=== PATIENT | male | born 1940 | race Caucasian/White ===

== ENCOUNTER → 2018-07-15 14:00 | Outpatient (CLI) | payer OTHER, SELFPAY | PROVIDERS: Family Provider Family Medicine; PCP Family Medicine | DX: Z23 Encounter for immunization (principal) | CPT/HCPCS: 90471; 90662 ==

== ENCOUNTER → 2018-10-18 07:51 | Outpatient (CLI) | payer OTHER, SELFPAY ==
[2018-10-18 09:17] LABS: Add Manual Diff / Slide Review NO; Basophils Percent Auto 0.5 % (0-2); Eosinophils Percent Auto 2.1 % (2-4); Hematocrit 42.5 % (41-53); Hemoglobin 14.4 g/dL (13.5-17.5); Lymphocytes Percent Auto 32.7 % (25-40); Mean Corpuscular HGB Conc 33.9 % (30-36); Mean Corpuscular Hemoglobin 33.2 PG (26-34); Mean Corpuscular Volume 98.2 fL (80-100); Neutrophils Absolute Auto 3200 /uL (1500-7000); Neutrophils Percent Auto 53.7 % (50-75); Platelet Count 176 X10^3/uL (150-400); Red Blood Cell Count 4.33 X10^6/uL (4.5-5.9); Red Cell Distribution Width 13.3 % (11.6-14.8); White Blood Cell Count 5.9 X10^3/uL (4.5-11.0)
[2018-10-18 09:46] LABS: Alanine Aminotransferase 27 IU/L (21-72); Albumin Globulin Ratio 1.5 (1.0-2.8); Alkaline Phosphatase 39 U/L (38-126); Aspartate Aminotransferase 26 IU/L (17-59); Bilirubin Total 0.4 mg/dL (0.2-1.3); Blood Urea Nitrogen 14 mg/dL (9-20); Calcium 9.2 mg/dL (8.4-10.2); Carbon Dioxide 27 mmol/L (22-32); Chloride 103 mmol/L (98-107); Estimated Glomerular Filt Rate > 60.0 mL/min (>60); Globulin 2.7 g/dL (1.7-4.1); Glucose 107 mg/dL (80-110); HEMOLYSIS < 15 (0-50); Potassium 4.7 mmol/L (3.4-5.1); Sodium 139 mmol/L (137-145); Total Protein 6.7 g/dL (6.3-8.2)
[2018-10-18 10:15] LABS: TSH w/ Reflex to FT4 2.17 uIU/mL (0.47-4.68)
[2018-10-18 10:16] LABS: Prostate Specific Antigen Scrn 1.96 ng/mL (0.1-4.0)
== END ==
PROVIDERS: Family Provider Family Medicine; PCP Family Medicine; Visit Provider Family Medicine
DX: I10 Essential (primary) hypertension (principal); E78.5 Hyperlipidemia, unspecified; Z12.5 Encounter for screening for malignant neoplasm of prostate
CPT/HCPCS: 36415; 80053; 84443; 85025; G0103

== ENCOUNTER → 2019-02-07 06:44 | Outpatient (CLI) | payer OTHER, SELFPAY ==
--- NOTE | 2019-02-07 | DI.ECHO.S_ITS ---
[facility]---------+ [facility] +---------+ : : [address] : : : : [id number] : : : : Phone: [phone] Echocardiogram Report + + :Name: ARMANDO CASAS Study Date: 02/07/2019 Height: 67 in : :[facility] Exam Location: [facility] Weight: 172 lb : : Gender: Male BSA: 1.9 m2 : :: 1940 Age: 78 yrs BP: 150/80 mmHg: :Reason For Study: Aortic valve stenosis : :Ordering Physician: Nick : :Milena Performed By: Stephanie Page : :Referring: NICK VILLAFUERTE : + + Interpretation Summary Normal left ventricle size with ejection fraction 60-65%. Mildly dilated left atrium. Mild aortic stenosis. Comparison is made with the echocardiogram of 09/30/2017, there has been no significant change. Procedure: A two-dimensional transthoracic echocardiogram with color flow and Doppler was performed. The study quality was technically good. Comparison is made with the echocardiogram of 09/30/2017. The patient was in normal sinus rhythm during the exam. Left Ventricle: The left ventricle is normal in size. There is normal left ventricular wall thickness. The ejection fraction is estimated to be 60-65%. There are no focal wall motion abnormalities. Diastolic parameters suggest probable normal left ventricular diastolic function and normal filling pressures. Right Ventricle: The right ventricle is normal in size and function. Atria: The left atrium is mildly dilated. Right atrial size is normal. There is no Doppler evidence for an interatrial shunt. Mitral Valve: The mitral valve is normal in structure and function. There is trace mitral regurgitation. Aortic Valve: The aortic valve is trileaflet. The aortic valve is mildly calcified. Leaflet mobility is mild to moderately reduced. There is mild aortic stenosis. The peak aortic velocity is 2.2 m/sec. The peak aortic velocity on the previous exam was 2.5 m/sec. The calculated aortic valve area is 1.6 cm2. The aortic valve mean gradient is 8.8 mmHg. There is trace aortic regurgitation. Tricuspid Valve: The tricuspid valve is normal in structure and function. There is trace tricuspid regurgitation. The right ventricular systolic pressure is estimated to be at least 22 mmHg based on an estimated right atrial pressure of 3 mm Hg. Pulmonic Valve: The pulmonic valve is not well seen, but is grossly normal. There is a trace or physiologic amount of pulmonic regurgitation. Great Vessels: The aortic root is normal size. The ascending aorta is normal in size. The pulmonary artery is not well visualized, but is probably normal size. The IVC is of normal diameter and collapses greater than 50% with a sniff. This suggests a low right atrial pressure of 3 mm Hg. Pericardium/ Pleura There is no pericardial effusion. There is no pleural effusion. MMode/2D Measurements & Calculations LVIDd: 4.6 cm LVOT diam: 2.2 cm LVIDs: 2.9 cm Ao root diam: 3.3 cm FS: 36.4 % asc Aorta Diam: 3.2 cm EPSS: 0.11 cm IVSd: 0.62 cm LVPWd: 0.61 cm LV tipton. diameter/BSA (cm/m^2): 2.4 LV sys. diameter/BSA (cm/m^2): 1.5 LA A2 area: 23.3 cm2 RA long axis: 4.6 cm LA A4 area: 18.5 cm2 RA area: 16.4 cm2 LA length (vol): 5.2 cm RA vol: 49.5 ml LA vol: 70.4 ml RA : 26.1 ml/m2 LA vol index: 37.1 ml/m2 IVC diam: 2.1 cm RVD1 (basal): 3.9 cm TAPSE: 2.2 cm Doppler Measurements & Calculations Ao V2 max: 216.9 cm/sec LVOT Max Ramy: 98.5 cm/sec Ao V2 mean: 140.2 cm/sec LV V1 max P.9 mmHg Ao max P.8 mmHg LV V1 VTI: 22.4 cm Ao mean P.8 mmHg JOSH(I,D): 1.6 cm2 Ao V2 VTI: 51.3 cm JOSH(V,D): 1.7 cm2 sev ratio: 0.44 JOSH indexed to BSA (cm^2/m^2): 0.84 MV E max ramy: 75.6 cm/sec TR max ramy: 218.6 cm/sec MV A max ramy: 81.4 cm/sec TR max P.1 mmHg MV E/A: 0.93 PA V2 max: 80.4 cm/sec Med Peak E' Ramy: 8.5 cm/sec PA V2 mean: 57.4 cm/sec E/E' med: 8.9 PA mean P.4 mmHg Lat Peak E' Ramy: 8.6 cm/sec PA Accel Time: 0.12 sec E/E' lat: 8.8 E/e' average: 8.8 MV dec time: 0.21 sec MV P1/2t: 59.2 msec MV 2t max ramy: 76.3 cm/sec SV(LVOT): 82.2 ml MVA(t): 3.7 cm2 Electronically signed by: Pauline Titus on Reading Physician:02/07/2019 01:33 PM
== END ==
PROVIDERS: Family Provider Family Medicine; PCP Family Medicine; Visit Provider Family Medicine
DX: I35.0 Nonrheumatic aortic (valve) stenosis (principal)
CPT/HCPCS: 93306

== ENCOUNTER → 2019-08-11 18:11 | Outpatient (CLI) | payer OTHER, SELFPAY | PROVIDERS: PCP Family Medicine | DX: Z23 Encounter for immunization (principal) | CPT/HCPCS: 90471; 90662 ==

== ENCOUNTER → 2019-08-18 10:25 | Outpatient (ROUT) | payer OTHER, SELFPAY ==
[2019-08-18 11:02] LABS: Influenza A and B by PCR Rapid Negative (Negative)
== END ==
PROVIDERS: PCP Family Medicine; Visit Provider Nurse Practitioner Family
DX: R05 Cough (principal); R50.9 Fever, unspecified; R52 Pain, unspecified
CPT/HCPCS: 87400; 87502

== ENCOUNTER 2019-11-03 19:34 | Emergency (ER) | payer MEDICARE, OTHER, SELFPAY ==
[2019-11-03 19:39] VITALS: BP 167/72; PULSE 66; RESP 16; TEMP 36.7; O2SAT 100
--- NOTE | 2019-11-03 20:52 | ED.UPPEXIN ---
HPI - Extremity Injury (Upper) General Chief Complaint: Extremity Injury, Upper Stated Complaint: lt hand injury Time Seen by Provider: 11/03/19 20:00 Source: patient Mode of arrival: Ambulatory Limitations: no limitations History of Present Illness HPI narrative: 79-year-old nonsmoking male with noncontributory medical history presents with his in the chief complaint of a superficial skin tear to his left hand. He was putting away Sunny or demands when he suffered this injury due to the sharp edge from the lid of an organizing box. He has no active bleeding, his tetanus is up-to-date and he has full, painless range of motion of his fingers. He denies any numbness or tingling. He has no other injury and is otherwise well and free of complaint. MD complaint: injury to: left Other injuries: none Handedness: left Place: home Severity: mild Relieving factors: none Exacerbating factors: none Context: direct blow and laceration Associated symptoms: denies other symptoms Treatments prior to arrival: bandage Related Data Allergies Allergy/AdvReac Type Severity Reaction Status Date / Time No Known Drug Allergies Allergy Verified 11/03/19 19:39 Review of Systems Constitutional Constitutional: Denies chills, Denies fatigue, Denies fever(s), Denies frequent falls, Denies lethargy and Denies weakness Eyes Eyes: Denies change in vision, Denies eye discharge, Denies irritation and Denies loss of vision ENT Ears, Nose, Mouth, and Throat: Denies change in voice, Denies dizziness, Denies neck pain, Denies sore throat and Denies throat swelling Cardiovascular Cardiovascular: Denies chest pain, Denies irregular heart rhythm, Denies lightheadedness, Denies palpitations, Denies dyspnea, Denies dyspnea on exertion and Denies orthopnea Respiratory Respiratory: Denies cough, Denies dyspnea, Denies dyspnea on exertion and Denies wheezing Gastrointestinal Gastrointestinal: Denies abdominal pain, Denies change in bowel habits, Denies diarrhea, Denies nausea and Denies vomiting Genitourinary Genitourinary: Denies hematuria, Denies flank pain, Denies urinary incontinence and Denies urinary urgency Musculoskeletal Musculoskeletal: Denies back pain, Denies muscle weakness, Denies neck pain, Denies numbness and Denies tingling Integumentary/Breasts Skin/Breast: Denies pruritus, Denies erythema, Denies rash and Reports wounds Neurologic Neurologic: Denies behavioral changes, Denies confusion, Denies dizziness, Denies frequent falls, Denies loss of vision, Denies numbness, Denies tingling and Denies weakness Psychiatric Psychiatric: Denies anxiety, Denies behavioral changes, Denies confusion, Denies depression, Denies homicidal ideation and Denies suicidal ideation Endocrine Endocrine: Denies fatigue, Denies flushing and Denies palpitations Hematologic/Lymphatic Hematologic/Lymphatic: Denies easy bruising Allergic/Immunologic Allergic/Immunologic: Denies urticaria, Denies throat swelling and Denies wheezing Patient History Social History Smoking Status: Former smoker Smoking Status: Former smoker alcohol intake frequency: 0-2 drinks per day Alcohol type: wine Substance Use Type: does not use Exam Narrative Exam Narrative: GEN: AOx3 and in mild distress EYES: Pupils are equal, round, and reactive to light and accommodation. Extraoccular muscles are intact bilaterally. There is no subconjunctival hemorrhage or exudate. CHEST: Lungs are clear to auscultation bilaterally and free of wheezes, rales, or rhonchi. Heart rate is regular rhythm, there are no murmurs, clicks, rubs, or gallops. There is no chest wall tenderness. ABD: Abdomen is soft and nontender. There is no guarding or rebound. Bowel sounds are normal in all 4 quadrants. There is no mass or organomegaly. EXT: 2 cm superficial abrasion on dorsum of left hand with no active bleeding. Skin is too thin to support suturing. Neurovascularly intact Full painless ROM of all extremities with no loss of sensation or strength. SKIN: Warm, pink, and dry. No erythema or rash Initial Vital Signs Initial Vital Signs: Vital Signs Temperature 98.1 F 11/03/19 19:39 Pulse Rate 66 11/03/19 19:39 Respiratory Rate 16 11/03/19 19:39 Blood Pressure 167/72 H 11/03/19 19:39 Pulse Oximetry 100 11/03/19 19:39 Course Vital Signs Vital signs: Vital Signs - 8 hr 11/03/19 19:39 11/03/19 21:14 Temperature 98.1 F Pulse Rate 66 72 Respiratory Rate 16 Blood Pressure 167/72 H 152/74 H Pulse Oximetry 100 97 MDM - Extremity Injury (Upper) MDM Narrative Medical decision making narrative: Patient suffer superficial skin tear. His tetanus is up-to-date. No active bleeding, low risk of infection. Too superficial to support laceration repair with sutures, therefore steristrips used. Return precautions given, questions answered to his apparent satisfaction. Discharge Plan Departure Patient Disposition: Home Clinical Impression: Skin tear of left upper extremity Discharge Date/Time: 11/03/19 21:16 Instructions: DI for Avulsion Laceration (Not Requiring Sutures) Activity Restrictions/Additional Instructions: *You have been diagnosed with [superficial skin tear left hand, no sutures required] *What to do: *Continue to take medications as directed *Follow up with your primary care provider in 2-3 days, call for an appointment. Let them know you were seen in the Emergency Department and that we ask that you be seen in follow up *Return to ER if you should have any new, worsening or concerning symptoms Referrals: Garrison Abbott MD [Primary Care Provider] -
[2019-11-03 21:14] VITALS: BP 152/74; PULSE 72; O2SAT 97
== END 2019-11-03 21:16 | disposition home or self-care (01) ==
PROVIDERS: Emergency Provider Emergency Medicine; Family Provider Family Medicine; PCP Family Medicine
DX: S61.412A Laceration without foreign body of left hand, initial encounter (principal); W26.9XXA Contact with unspecified sharp object(s), initial encounter
CPT/HCPCS: 99281

== ENCOUNTER → 2020-11-23 10:20 | Outpatient (CLI) | payer MEDICARE, OTHER, SELFPAY ==
[2020-11-23] MEDS: COVID-19 VACC #1, MRNA(MOD) 100 MCG/0.5 ML VIAL IM (10:27)
== END ==
PROVIDERS: Family Provider Family Medicine; PCP Family Medicine; Visit Provider Internal Medicine
DX: Z23 Encounter for immunization (principal)
CPT/HCPCS: 0011A; 91301

== ENCOUNTER → 2020-12-21 10:28 | Outpatient (CLI) | payer MEDICARE, OTHER, SELFPAY ==
[2020-12-21] MEDS: COVID-19 VACC #2, MRNA(MOD) 100 MCG/0.5 ML VIAL IM (10:33)
== END ==
PROVIDERS: Family Provider Family Medicine; PCP Family Medicine; Visit Provider Internal Medicine
DX: Z23 Encounter for immunization (principal)
CPT/HCPCS: 0012A; 91301

== ENCOUNTER → 2021-02-27 08:56 | Outpatient (CLI) | payer MEDICARE, OTHER, SELFPAY ==
--- NOTE | 2021-02-27 | DI.CT.S_ITS ---
PROCEDURE: CT CHEST ABD PEL W CON INDICATIONS: Elevated prostate specific antigen [PSA] TECHNIQUE: After the administration of oral and intravenous contrast, 5 mm thick sections acquired from the lung apices to the symphysis. 5 mm coronal and sagittal reformats were performed, with additional 7 mm coronal MIP reformats through the lungs. For radiation dose reduction, the following was used: automated exposure control, adjustment of mA and/or kV according to patient size. COMPARISON: None. FINDINGS: Image quality: Excellent. CHEST: Lungs and pleura: The lungs have centrilobular emphysematous changes. No acute air space opacities. No pleural effusions or pneumothorax. Central and peripheral airways are patent and normal in caliber. Mediastinum: Heart size is normal. The coronary arteries have atherosclerotic calcifications. No pericardial effusion. No mediastinal adenopathy by size criteria. Thoracic aorta and central pulmonary arteries are normal in size. Esophagus is normal in caliber. No hiatal hernia. Bones and chest wall: No suspicious bony lesions. No vertebral body compression fractures. No axillary or supraclavicular adenopathy by size criteria. Thyroid gland is normal . ABDOMEN: Solid organs: Liver: The liver has no mass or intrahepatic biliary ductal dilatation. The portal vein and hepatic veins are patent. Biliary: The gallbladder has no gallstones, pericholecystic fluid, gallbladder wall thickening, or surrounding inflammatory change. Pancreas: The pancreas has no mass or ductal dilatation. There is no surrounding inflammation. Spleen: Normal size. There are no masses. Adrenals: No hypertrophy or nodules. Kidneys: No obstructive calculus or hydronephrosis. No solid mass. The left kidney has a 5 millimeter simple cyst extending from the inferior pole. Bowel: The distal esophagus and stomach are normal. The small bowel has a normal caliber and appearance. The terminal ileum is normal. The large bowel has a normal caliber and appearance. The appendix is normal. No free fluid or air. Nodes and vessels: An aortic Lilly all lymph node at the level of the kidneys measures 1.8 x 1.6 centimeters in axial dimension by 4.2 centimeters craniocaudal. Additional subcentimeter retroperitoneal lymph nodes are seen along the right retroperitoneum along the IVC. Abdominal wall: No abdominal wall mass or hernia. PELVIS: Genitourinary: The bladder has no wall thickening or mass. No bladder calcifications. The prostate measures 3.7 x 4.5 x 4.0 cm. Miscellaneous: No inguinal hernias or adenopathy. Bones and abdominal wall: Patchy sclerotic areas in the visualized spine and pelvis. No vertebral body compression fractures. IMPRESSION: 1. There are patchy sclerotic areas throughout the visualized spine which are suspicious for metastatic disease. Please correlate with bone scan which is being performed today. Sclerotic lesions in the pelvis are also seen likely osseous metastatic disease. 2. Retroperitoneal adenopathy with a conglomerate measuring 1.8 x 1.6 by 4.2 posterior to the IVC at the level of the kidneys. Dictated by: Benito Garcia M.D. on 02/27/2021 at 10:15 Approved by: Benito Garcia M.D. on 02/27/2021 at 10:29
--- NOTE | 2021-02-27 | DI.NM.S_ITS ---
PROCEDURE: NM BONE SCAN WHOLE BODY RADIOPHARMACEUTICAL: 22.6 mCi Tc-99m MDP IV. INDICATIONS: Elevated prostate specific antigen [PSA] TECHNIQUE: Delayed whole-body scintigrams were obtained approximately 3-4 hours after intravenous injection of radiotracer. Anterior and posterior views were acquired from vertex to feet. . COMPARISON: [facility], CT, CT CHEST ABD PEL W CON, 02/27/2021, 9:45. FINDINGS: There are innumerable foci of abnormal uptake involving the cervical, thoracic and lumbar spine, sacrum, sternum, scapulae bilaterally, bony pelvis bilaterally, proximal humeri and proximal femurs bilaterally, consistent with osseous metastases. IMPRESSION: Extensive osseous metastases. Dictated by: Kellie Clayton M.D. on 02/27/2021 at 14:40 Approved by: Kellie Clayton M.D. on 02/27/2021 at 14:42
== END ==
PROVIDERS: Family Provider Family Medicine; PCP Family Medicine; Referring Provider Family Medicine; Visit Provider Family Medicine
DX: R97.20 Elevated prostate specific antigen [PSA] (principal); R59.0 Localized enlarged lymph nodes; R93.5 Abnormal findings on diagnostic imaging of other abdominal regions, including retroperitoneum; C79.51 Secondary malignant neoplasm of bone
CPT/HCPCS: 71260; 74177; 78306; A9503

== ENCOUNTER → 2021-12-23 08:10 | Outpatient (CLI) | payer MEDICARE, OTHER, SELFPAY ==
[2021-12-23 09:11] LABS: BUN Creatinine Ratio 21.6 (6-22); Blood Urea Nitrogen 19 mg/dL (9-20); Calcium 9.5 mg/dL (8.4-10.2); Carbon Dioxide 34 mmol/L (22-32); Chloride 103 mmol/L (98-107); Estimated Glomerular Filt Rate > 60.0 mL/min (>60); Glucose 107 mg/dL (80-110); HEMOLYSIS < 15 (0-50); Sodium 138 mmol/L (137-145)
[2021-12-23 09:19] LABS: Potassium 5.4 mmol/L (3.4-5.1)
== END ==
PROVIDERS: Family Provider Family Medicine; PCP Family Medicine; Referring Provider Urology; Visit Provider Urology
DX: C61 Malignant neoplasm of prostate (principal)
CPT/HCPCS: 36415; 80048

== ENCOUNTER → 2021-12-24 07:35 | Outpatient (CLI) | payer MEDICARE, OTHER, SELFPAY ==
--- NOTE | 2021-12-24 | DI.CT.S_ITS ---
PROCEDURE: CT ABDOMEN PELVIS W CON INDICATIONS: Malignant neoplasm of prostate TECHNIQUE: After the administration of oral and intravenous contrast, axial sections were acquired from the lung bases to the pubic symphysis. Coronal and sagittal reformats were performed. For radiation dose reduction, the following was used: automated exposure control, adjustment of mA and/or kV according to patient size. COMPARISON:[facility], NM, NM BONE SCAN WHOLE BODY, 02/27/2021, 12:05. [facility], CT, CT CHEST ABD PEL W CON, 02/27/2021, 9:45. FINDINGS: Image quality: Excellent. Lung bases: Unremarkable. Heart: No significant findings. ABDOMEN: Liver: Hepatic steatosis is present. Gallbladder: Unremarkable. Biliary ducts: Unremarkable. Pancreas: Unremarkable. Spleen: Unremarkable. Adrenal Glands: Unremarkable. Kidneys and Ureters: Simple exophytic left renal cyst is unchanged. Stomach and Bowel: Stomach, small bowel loops, and colon are unremarkable. Colonic diverticula are present without inflammatory change. Peritoneum: No abnormal intraperitoneal fluid. No free air. Lipoma within the left lateral abdominal wall musculature is unchanged. Ventral Wall: No hernia. Abdominal Nodes: Previously identified aortocaval lymph node on series 2, image 38 has decreased in size currently measuring 0.6 by 1.0 cm compared to 1.7 x 1.8 cm. Vessels: Aorta and inferior vena cava are normal in size. PELVIS: Pelvic Organs: Unremarkable. Bladder: Unremarkable. Pelvic Nodes: No enlarged lymph nodes. Previously identified predominantly subcentimeter lymph nodes extending along the right iliac change have markedly decreased in size with the largest measuring 3 mm in short axis compared to 12 mm on prior exam. Miscellaneous: Fat containing inguinal hernias are present. Bones: There is a diffuse appearance of sclerotic lesions within the axial and appendicular skeleton progressive compared to prior exams of 02/27/2021. IMPRESSION: Extensive skeletal metastatic disease, progressive since 2020. Decreased appearance of aortocaval adenopathy as well as right iliac adenopathy. Dictated by: Huong Pedersen M.D. on 12/24/2021 at 15:03 Approved by: Huong Pedersen M.D. on 12/24/2021 at 15:11
--- NOTE | 2021-12-24 | DI.NM.S_ITS ---
PROCEDURE: AL BONE SCAN WHOLE BODY RADIOPHARMACEUTICAL: 19.7 mCi Tc-99m MDP IV. INDICATIONS: Malignant neoplasm of prostate TECHNIQUE: Delayed whole-body scintigrams were obtained approximately 3-4 hours after intravenous injection of radiotracer. Anterior and posterior views were acquired from vertex to feet. Additional left and right oblique views of the pelvis were obtained. COMPARISON: [facility], CT, CT ABDOMEN PELVIS W CON, 12/24/2021, 9:13. [facility], NM, NM BONE SCAN WHOLE BODY, 02/27/2021, 12:05. FINDINGS: Physiologic uptake is noted within the kidneys and bladder. There are scattered areas of uptake identified within the ribs bilaterally. In addition, multilevel uptake is also noted within the spine. Uptake is also noted within the sacrum as well as iliac bones, with areas of uptake into the proximal femurs. There is a punctate focus of increased uptake overlying the left calvarium as well as a questionable focus on the right. While overall appearance on CT exam of 12/24/2021 appears more extensive in terms of osseous metastatic disease compared to prior CT scan of 02/27/2021, bone scans appear relatively similar. IMPRESSION: Diffuse osseous metastatic disease appearing overall relatively stable compared to prior bone scan exam. It is noted that CT exam of today does appear worse compared to prior CT exam. Dictated by: Huong Pedersen M.D. on 12/24/2021 at 17:11 Approved by: Huong Pedersen M.D. on 12/24/2021 at 17:15
== END ==
PROVIDERS: Family Provider Family Medicine; PCP Family Medicine; Referring Provider Urology; Visit Provider Urology
DX: C61 Malignant neoplasm of prostate (principal); C79.51 Secondary malignant neoplasm of bone; K76.0 Fatty (change of) liver, not elsewhere classified; K40.90 Unilateral inguinal hernia, without obstruction or gangrene, not specified as recurrent
CPT/HCPCS: 74177; 78306; A9503; Q9967

== ENCOUNTER → 2022-03-05 08:55 | Outpatient (CLI) | payer MEDICARE, OTHER, SELFPAY ==
--- NOTE | 2022-03-05 10:07 | DI.CT.S_ITS ---
PROCEDURE: CT ABDOMEN PELVIS W CON INDICATIONS: Malignant neoplasm of prostate TECHNIQUE: After the administration of oral and intravenous contrast, axial sections were acquired from the lung bases to the pubic symphysis. Coronal and sagittal reformats were performed. For radiation dose reduction, the following was used: automated exposure control, adjustment of mA and/or kV according to patient size. COMPARISON:[facility], CT, CT CHEST ABD PEL W CON, 02/27/2021, 9:45. [facility], CT, CT ABDOMEN PELVIS W CON, 12/24/2021, 9:13. FINDINGS: Image quality: Excellent. Lung bases: Unremarkable. Heart: No significant findings. ABDOMEN: Liver: Unremarkable. Gallbladder: Unremarkable. Biliary ducts: Unremarkable. Pancreas: Unremarkable. Spleen: Unremarkable. Adrenal Glands: Unremarkable. Kidneys and Ureters: Unremarkable. Throughout the spine and pelvis. Sclerotic bony lesions are also visualized within the superior aspect of the bilateral femurs. Overall, these findings are similar in extent to the study dated December 24, 2021. A low-density cyst is present within the midpole of the left kidney. Stomach and Bowel: Stomach, small bowel loops, and colon are unremarkable. There are scattered sigmoid diverticula. No evidence for diverticulitis. The appendix is thin walled and gas filled. Peritoneum: No abnormal intraperitoneal fluid. No free air. Ventral Wall: No hernia. Abdominal Nodes: No retroperitoneal or mesenteric adenopathy by size criteria. Vessels: Aorta and inferior vena cava are normal in size. There are scattered atheromatous calcifications throughout the aorta and iliac arteries bilaterally. PELVIS: Pelvic Organs: Unremarkable. Bladder: Unremarkable. Pelvic Nodes: No enlarged lymph nodes. Miscellaneous: There is a small right fat containing inguinal hernia. Bones: There are diffuse sclerotic bony lesions IMPRESSION: 1. Extensive sclerotic bony metastases unchanged from prior studies. 2. Near complete resolution of the previously visualized retroperitoneal adenopathy. No findings to suggest new soft tissue metastasis. Dictated by: Lluvia Rutherford M.D. on 03/05/2022 at 11:10 Approved by: Lluvia Rutherford M.D. on 03/05/2022 at 11:22
[2022-03-05 11:33] LABS: COVID-19 CEPHEID PCR (VTM/NP) Negative (Negative)
== END ==
PROVIDERS: Family Provider Family Medicine; PCP Family Medicine; Referring Provider Urology; Visit Provider Urology
DX: C61 Malignant neoplasm of prostate (principal); C79.51 Secondary malignant neoplasm of bone; Z20.822 Contact with and (suspected) exposure to COVID-19
CPT/HCPCS: 74177; U0003; U0005

== ENCOUNTER → 2022-07-29 09:00 | Outpatient (CLI) | payer MEDICARE, OTHER, SELFPAY | PROVIDERS: Family Provider Family Medicine; PCP Family Medicine; Referring Provider Internal Medicine; Visit Provider Internal Medicine | DX: Z23 Encounter for immunization (principal) | CPT/HCPCS: 90471; 90662 ==

== ENCOUNTER → 2022-09-22 12:39 | Outpatient (ROUT) | payer MEDICARE, OTHER, SELFPAY ==
[2022-09-22 13:38] LABS: Influenza A - CEPHEID Flu A POSITIVE (NEGATIVE); Influenza B - CEPHEID Flu B NEGATIVE (NEGATIVE); Respiratory Syncytial Virus Negative (Negative)
[2022-09-22 14:32] LABS: COVID-19 CEPHEID 4-PLEX PCR Negative (Negative)
== END ==
PROVIDERS: Family Provider Family Medicine; PCP Family Medicine; Visit Provider Family Medicine
DX: R05.9 Cough, unspecified (principal); R50.9 Fever, unspecified
CPT/HCPCS: 0241U

== ENCOUNTER 2022-09-27 08:17 | Emergency (ER) | payer MEDICARE, OTHER, SELFPAY ==
[2022-09-27] VITALS (15 sets, daily range): BP systolic 161–190; BP diastolic 70–87; PULSE 64–88; RESP 16–18; TEMP 37; O2SAT 94–99; BMI 27.0
--- NOTE | 2022-09-27 09:05 | DI.CT.S_ITS ---
PROCEDURE: CT CHEST ABD PEL W CON INDICATIONS: rt side pain 1 week TECHNIQUE: After the administration of intravenous contrast, axial sections acquired from the supraclavicular neck to the pubic symphysis. Coronal and sagittal reformats were performed. For radiation dose reduction, the following was used: automated exposure control, adjustment of mA and/or kV according to patient size. COMPARISON: [facility], CT, CT ABDOMEN PELVIS W CON, 12/24/2021, 9:13. [facility], CT, CT ABDOMEN PELVIS W CON, 03/05/2022, 10:17. [facility], MD, MD BONE SCAN WHOLE BODY, 12/24/2021, 10:26. [place], [place], [place] BONE SCAN WHOLE BODY, 02/27/2021, 12:05. [facility], CT, CT CHEST ABD PEL W CON, 02/27/2021, 9:45. FINDINGS: Image quality: Excellent. CHEST: Lower Neck: No enlarged lymph nodes. Thyroid: Within normal limits. Axillae: No enlarged lymph nodes. Chest Wall: Unremarkable. Lungs and Airways: No consolidation or suspicious nodules. Centrilobular emphysematous changes are seen. These are more prominent at the lung apices than at the lung bases. Pleura: No pneumothorax or pleural effusions. Heart: Heart size is normal. No pericardial effusion. Mild coronary artery calcification is seen. Thoracic Vessels: The aorta and pulmonary arteries demonstrate normal size. Mediastinum and Liliana: No enlarged lymph nodes. Esophagus: No wall thickening. There is a mild hiatal hernia. ABDOMEN: Liver: Unremarkable. Gallbladder: Unremarkable. Biliary ducts: Unremarkable. Pancreas: Unremarkable. Spleen: Unremarkable. Adrenal Glands: Unremarkable. Kidneys and Ureters: A simple left renal cyst is seen anteriorly, 4.5 cm. The kidneys demonstrate normal size and enhance symmetrically. There is no hydronephrosis. Stomach and Bowel: Stomach, small bowel loops, and colon are unremarkable. Colonic diverticulosis is seen, without findings of active diverticulitis. A normal appendix is seen, which projects inferiorly. Peritoneum: No abnormal intraperitoneal fluid. No free air. Ventral Wall: No hernia. Abdominal Nodes: No retroperitoneal or mesenteric adenopathy by size criteria. Vessels: Aorta and inferior vena cava are normal in size. Atherosclerotic calcification is noted. PELVIS: Pelvic Organs: Unremarkable. Bladder: Unremarkable. Pelvic Nodes: No enlarged lymph nodes. Miscellaneous: No inguinal hernias are seen. Bones: Innumerable foci of sclerotic metastatic disease can be seen within nearly overly visualized bone, which is similar to the prior CT, 03/05/2022. IMPRESSION: Advanced sclerotic metastatic disease is seen, which is similar to the prior CT. No keisha pathologic fracture is seen. Normal appendix. No significant gallbladder abnormality is seen. The previously seen right retroperitoneal lymphadenopathy has resolved. Additional findings: Centrilobular emphysematous changes Mild coronary artery calcification Mild hiatal hernia Simple left renal cyst Diverticulosis, without active diverticulitis Dictated by: William Leblanc M.D. on 09/27/2022 at 9:41 Approved by: William Leblanc M.D. on 09/27/2022 at 9:48
--- NOTE | 2022-09-27 09:06 | ED_ITS ---
HPI - General Adult General Chief complaint: Upper Respiratory Symptoms Stated complaint: saw DR on t-6 has Flu not getting better Time Seen by Provider: 09/27/22 08:55 Mode of arrival: Family Vehicle History of Present Illness HPI narrative: Patient here with spouse. Complains of right lower quadrant abdominal pain for the past 3 days. Patient seen by primary care and tested positive for flu a. Has been given [id number] cough medication without relief. Pain worsened in the past 3 days. Codeine suspension cough medication was prescribed yesterday. Hurts with movement and coughing. No shortness of breath. No vomiting. No diarrhea. Related Data Previous Rx's Medication Instructions Recorded hydrocodone 5 mg-acetaminophen 325 1 tab PO Q6H PRN pain #20 tabs 09/27/22 mg tablet Allergies Allergy/AdvReac Type Severity Reaction Status Date / Time No Known Drug Allergies Allergy Verified 09/27/22 08:44 Review of Systems Review of Systems Narrative: GENERAL: negative chills, fatigue, malaise, fever, sweats. HEENT: negative sinus pain, ear pain, sore throat RESPIRATORY: negative dyspnea, positive cough CARDIOVASCULAR: negative chest pain, palpitations GASTROINTESTINAL: negative nausea, vomiting, negative diarrhea positive abdominal pain : negative dysuria, frequency, hematuria MUSCULOSKELETAL: negative muscle or bony pain SKIN: negative rash, skin lesions NEUROLOGIC: negative weakness, numbness ROS Unobtainable: All systems reviewed & are unremarkable except as noted in HPI and below Patient History Social History Smoking Status: Former smoker Smoking Status: Former smoker alcohol intake frequency: 0-2 drinks per day Alcohol type: wine Substance Use Type: does not use Exam Narrative Exam Narrative: GENERAL: in no distress, not toxic not dyspneic HEAD: Normocephalic. EYES: Pupils equal round No scleral icterus. ENT: Mucous membranes moist. NECK: Trachea midline. CARDIOVASCULAR: Regular rate and rhythm without murmurs RESPIRATORY: Clear to auscultation. Breath sounds equal bilaterally. No wheezes, rales, or rhonchi. GASTROINTESTINAL: Abdomen soft, reproducible right lower quadrant tenderness. There is no rib tenderness on the right side. Bowel sounds are present. No peritoneal signs. No CVA tenderness EXTREMITIES: No gross deformities. BACK: No flank tenderness. NEURO: AOx4. SKIN: Warm and dry PSYCH: Not anxious, is cooperative Initial Vital Signs Initial Vital Signs: Vital Signs Temperature 98.6 F 09/27/22 08:40 Pulse Rate 78 09/27/22 08:40 Respiratory Rate 18 09/27/22 08:40 Blood Pressure 175/81 H 09/27/22 08:40 Pulse Oximetry 98 09/27/22 08:40 Oxygen Delivery Method 09/27/22 08:40 Course Course Course Narrative: No new issues during course of stay Orders Ordered: Discontinued Medications Sodium Chloride (Normal Saline 0.9%) 1,000 mls @ 1,000 mls/hr IV BOLUS ONE Stop: 09/27/22 10:02 Last Infusion: 09/27/22 10:29 Dose: 0 mls/hr Documented By: Admin: 09/27/22 09:30 Dose: 1,000 mls/hr Documented By: SLOANE Morphine Sulfate (Morphine 4 Mg/Ml Inj) 4 mg IV NOW ONE Stop: 09/27/22 09:04 Last Admin: 09/27/22 09:30 Dose: 4 mg Documented By: SLOANE Ondansetron HCl (Ondansetron 4 Mg/2 Ml Inj) 4 mg IV NOW ONE Stop: 09/27/22 09:04 Last Admin: 09/27/22 09:30 Dose: 4 mg Documented By: SLOANE Reevaluation(s) Reevaluation #1: Patient pain-free at time of discharge. Agrees with medication pain medication changes. Return precautions reviewed with patient and . Time: 13:34 Vital Signs Vital signs: Vital Signs - 8 hr 09/27/22 08:40 09/27/22 09:35 09/27/22 09:37 Temperature 98.6 F Pulse Rate 78 69 70 Respiratory Rate 18 Blood Pressure 175/81 H Pulse Oximetry 98 97 95 Oxygen Delivery Method Room Air 09/27/22 09:37 09/27/22 09:40 09/27/22 09:40 Temperature Pulse Rate 64 Respiratory Rate Blood Pressure 185/80 H 165/78 H Pulse Oximetry 95 Oxygen Delivery Method 09/27/22 10:00 09/27/22 10:00 09/27/22 10:36 Temperature Pulse Rate 66 88 Respiratory Rate Blood Pressure 182/80 H Pulse Oximetry 94 94 Oxygen Delivery Method 09/27/22 10:38 09/27/22 10:38 09/27/22 10:40 Temperature Pulse Rate 87 81 Respiratory Rate Blood Pressure 190/87 H Pulse Oximetry 98 99 Oxygen Delivery Method 09/27/22 10:40 09/27/22 11:00 09/27/22 11:01 Temperature Pulse Rate 75 Respiratory Rate Blood Pressure 173/74 H 179/81 H Pulse Oximetry 98 Oxygen Delivery Method 09/27/22 11:01 09/27/22 11:20 09/27/22 11:20 Temperature Pulse Rate 75 76 Respiratory Rate Blood Pressure 163/70 H Pulse Oximetry 97 95 Oxygen Delivery Method 09/27/22 11:30 09/27/22 11:41 09/27/22 11:41 Temperature Pulse Rate 74 71 Respiratory Rate Blood Pressure 161/70 H Pulse Oximetry 95 95 Oxygen Delivery Method 09/27/22 12:00 09/27/22 12:00 Temperature Pulse Rate 72 Respiratory Rate Blood Pressure 166/71 H Pulse Oximetry 97 Oxygen Delivery Method Medical Decision Making Differential Diagnosis Differential Diagnosis: Abdominal muscle strain/appendicitis/colitis Lab Data Result diagrams: 09/27/22 09:22 09/27/22 09:22 Labs: Lab Results 09/27/22 09/27/22 09/27/22 Range/Units 09:22 09:22 10:37 WBC 5.8 (4.5-11.0) X10^3/uL RBC 3.99 L (4.5-5.9) X10^6/uL Hgb 13.3 L (13.5-17.5) g/dL Hct 38.6 L (41-53) % MCV 96.7 (80-100) fL MCH 33.4 (26-34) PG MCHC 34.5 (30-36) % RDW 12.7 (11.6-14.8) % Plt Count 167 (150-400) X10^3/uL Neut % (Auto) 66.0 (50-75) % Lymph % (Auto) 20.2 L (25-40) % [place] % (Auto) 13.2 (3-14) % Eos % (Auto) 0.4 L (2-4) % Baso % (Auto) 0.2 (0-2) % Neut # (Auto) 3800 (7561-4009) /uL Lymph # (Auto) 1200 (8762-2142) /uL [place] # (Auto) 800 (0-900) /uL Eos # (Auto) 0 (0-450) /uL Baso # (Auto) 0 (0-100) /uL Sodium 139 (137-145) mmol/L Potassium 4.0 (3.4-5.1) mmol/L Chloride 101 (98-107) mmol/L Carbon Dioxide 29 (22-32) mmol/L BUN 20 (9-20) mg/dL Creatinine 0.70 (0.66-1.25) mg/dL Estimated GFR > 60 (>60) mL/min BUN/Creatinine Ratio 28.6 H (6-22) Glucose 109 (80-110) mg/dL Calcium 10.4 H (8.4-10.2) mg/dL Total Bilirubin 0.6 (0.2-1.3) mg/dL AST 29 (17-59) IU/L ALT 26 (<50) IU/L Alkaline Phosphatase 37 L (38-126) U/L Total Protein 7.2 (6.3-8.2) g/dL Albumin 4.0 (3.5-5.0) g/dL Globulin 3.2 (1.7-4.1) g/dL Albumin/Globulin Ratio 1.3 (1.0-2.8) Urine Color Yellow Urine Appearance Clear Urine pH 6.5 (4.5-8.0) Ur Specific [place] <=1.005 (1.000-1.035) Urine Protein Negative (Negative) Urine Glucose (UA) Negative (Negative) g/dL Urine Ketones Negative (NEGATIVE) Urine Occult Blood Negative (Negative) Urine Nitrate Negative (Negative) Urine Bilirubin Negative (NEGATIVE) Urine Urobilinogen 0.2 (0.2) E.U./dL Ur Leukocyte Esterase Negative (NEGATIVE) Urine RBC 0-1/hpf (0-5/HPF) Urine WBC 0-1/hpf (0-5/HPF) Ur Squamous Epith Cells 0-1 /hpf (0-5/HPF) Urine Bacteria None seen (None) Ur Culture Indicated? Cult not indicated Imaging Data CT scan - abdomen/pelvis: Radiologist's Impression: CT chest abdomen pelvis resultsAdvanced sclerotic metastatic disease is seen which is similar to the prior CT. No keisha pathologic fracture seen. Normal appendix. MDM Narrative Medical decision making narrative: Appropriate for discharge homePatient not toxic at discharge.Return precautions reviewed with patient.Exam and laboratory studies and imaging otherwise reassuring. Patient understands not to take codeine since we are prescribing pain medicationPatient does have a driver lifter of sanitation truck. Repetitive coughing likely strain abdominal muscle wall Discharge Plan Departure Patient Disposition: Home Clinical Impression: Muscle strain Instructions: Abdominal Muscle Strain Activity Restrictions/Additional Instructions: See family doctor next week for re-evaluation Please do not take your codeine cough medication.Hydrocodone prescription has been printed for you to help for your abdominal pain.Return if worse or if any questions or concerns No driving or operating machinery today or when taking prescribed pain medication. Prescriptions: New hydrocodone-acetaminophen 5-325 mg tablet 1 tab PO Q6H PRN (Reason: pain) Qty: 20 0RF Referrals: Garrison Abbott MD [Primary Care Provider] - Visit Report Forms: Patient Portal/API
[2022-09-27] MEDS: MORPHINE 4 MG/ML INJ IV (09:30)
[2022-09-27] MEDS: ONDANSETRON 4 MG/2 ML INJ IV (09:30)
[2022-09-27] MEDS: SODIUM CHLORIDE 0.9% 1,000 ML 1000 ML IV (09:30)
[2022-09-27 09:31] LABS: Add Manual Diff / Slide Review NO; Basophils Absolute Auto 0 /uL (0-100); Basophils Percent Auto 0.2 % (0-2); Eosinophils Absolute Auto 0 /uL (0-450); Eosinophils Percent Auto 0.4 % (2-4); Hematocrit 38.6 % (41-53); Hemoglobin 13.3 g/dL (13.5-17.5); Lymphocytes Absolute Auto 1200 /uL (1100-4500); Lymphocytes Percent Auto 20.2 % (25-40); Mean Corpuscular HGB Conc 34.5 % (30-36); Mean Corpuscular Hemoglobin 33.4 PG (26-34); Mean Corpuscular Volume 96.7 fL (80-100); Monocytes Absolute Auto 800 /uL (0-900); Monocytes Percent Auto 13.2 % (3-14); Neutrophils Absolute Auto 3800 /uL (1500-7000); Platelet Count 167 X10^3/uL (150-400); Red Blood Cell Count 3.99 X10^6/uL (4.5-5.9); Red Cell Distribution Width 12.7 % (11.6-14.8); White Blood Cell Count 5.8 X10^3/uL (4.5-11.0)
[2022-09-27 09:58] LABS: Alanine Aminotransferase 26 IU/L (<50); Albumin Globulin Ratio 1.3 (1.0-2.8); Alkaline Phosphatase 37 U/L (38-126); Aspartate Aminotransferase 29 IU/L (17-59); BUN Creatinine Ratio 28.6 (6-22); Bilirubin Total 0.6 mg/dL (0.2-1.3); Blood Urea Nitrogen 20 mg/dL (9-20); Calcium 10.4 mg/dL (8.4-10.2); Carbon Dioxide 29 mmol/L (22-32); Chloride 101 mmol/L (98-107); Estimated Glomerular Filt Rate > 60 mL/min (>60); Globulin 3.2 g/dL (1.7-4.1); Glucose 109 mg/dL (80-110); HEMOLYSIS < 15 (0-50); Sodium 139 mmol/L (137-145); Total Protein 7.2 g/dL (6.3-8.2)
[2022-09-27 11:02] LABS: Appearance Urine UA CLEAR; Bilirubin Urine UA NEGATIVE (NEGATIVE); Color Urine UA YELLOW; Glucose Urine UA NEGATIVE (Negative); Ketones Urine UA NEGATIVE (NEGATIVE); Leukocyte Esterase Urine UA NEGATIVE (NEGATIVE); Nitrite Urine UA NEGATIVE (Negative); Occult Blood Urine UA NEGATIVE (Negative); Protein Urine UA NEGATIVE (Negative); Specific Gravity Urine UA <=1.005 (1.000-1.035); Urobilinogen Urine UA 0.2 E.U./dL (0.2); pH Urine UA 6.5 (4.5-8.0)
[2022-09-27 11:28] LABS: Bacteria Urine None Seen; Culture Indicated Urine Cult Not Indicated; RBC Urine 0-1/HPF (0-5/HPF); Squamous Epithelial Cell Urine 0-1 /HPF (0-5/HPF); WBC Urine 0-1/HPF (0-5/HPF)
== END 2022-09-27 13:38 | disposition home or self-care (01) ==
PROVIDERS: Emergency Provider Emergency Medicine; Family Provider Family Medicine; PCP Family Medicine
DX: S39.011A Strain of muscle, fascia and tendon of abdomen, initial encounter (principal); R05.9 Cough, unspecified
CPT/HCPCS: 36415; 71260; 74177; 80053; 81001; 85025; 96361; 96374; 96375; 99284; J2270; J2405; Q9967

== ENCOUNTER 2023-07-23 15:17 | Emergency (ER) | payer MEDICARE, OTHER, SELFPAY ==
[2023-07-23] VITALS (17 sets, daily range): BP systolic 88–134; BP diastolic 50–64; PULSE 83–99; RESP 16–27; TEMP 37.3; O2SAT 93–98; BMI 28.1
--- NOTE | 2023-07-23 15:35 | DI.RAD.S_ITS ---
PROCEDURE: XR CHEST 1V INDICATIONS: chest pain TECHNIQUE: One view of the chest was acquired. COMPARISON: [facility], CT, CT CHEST ABD PEL W CON, 09/27/2022, 10:18. FINDINGS: Surgical changes and devices: None. Lungs and pleura: Lungs are clear. No pleural effusions or pneumothorax. Mediastinum: Mediastinal contours appear normal. Heart size is normal. Bones and chest wall: No suspicious bony lesions. Age-appropriate bony degenerative changes are seen. Overlying soft tissues appear unremarkable. IMPRESSION: Portable chest within normal limits for age. Dictated by: William Leblanc M.D. on 07/23/2023 at 16:16 Approved by: William Leblanc M.D. on 07/23/2023 at 16:17
--- NOTE | 2023-07-23 15:45 | PC.NURSE ---
Pt c/o dizziness, malaise, body aches. When asked about chest pain, denies pain, reports mild, intermittent chest pressure, now resolved.
[2023-07-23] MEDS: ACETAMINOPHEN 325 MG TABLET 650 MG PO (16:12)
[2023-07-23] MEDS: SODIUM CHLORIDE 0.9% 500 ML 1000 ML IV (16:12)
--- NOTE | 2023-07-23 16:14 | ED_ITS ---
HPI - Chest Pain <Johana Carreno PA-C - Last Filed: 07/23/23 19:19> General Chief Complaint: Chest Pain Stated Complaint: chills/N/D/weak/covid -/ T-0/ Time Seen by Provider: 07/23/23 15:55 Source: patient Mode of arrival: Wheelchair Limitations: no limitations History of Present Illness HPI narrative: Patient is an 83-year-old male with a history of prostate cancer for which he is currently under treatment and controlled hypertension who presents with chills and body aches since last night. He reports a rare cough, no runny nose or sore throat, no nausea or vomiting, soft stools that are not watery and no abdominal pain. He is no new urinary complaints. He had a negative COVID test at home. He has taken 200 mg of ibuprofen twice today. His PCP is Dr. Abbott. Related Data Previous Rx's Medication Instructions Recorded hydrocodone 5 mg-acetaminophen 325 1 tab PO Q6H PRN pain #20 tabs //22 mg tablet Allergies Allergy/AdvReac Type Severity Reaction Status Date / Time codeine Allergy Verified 07/23/23 15:28 Review of Systems <Johana Carreno PA-C - Last Filed: 07/23/23 19:19> Review of Systems ROS Unobtainable: All systems reviewed & are unremarkable except as noted in HPI and below Patient History <Johana Carreno PA-C - Last Filed: 07/23/23 19:19> Social History Smoking Status: Former smoker Smoking Status: Former smoker alcohol intake frequency: 0-2 drinks per day Alcohol type: wine Substance Use Type: does not use Exam <Johana Carreno PA-C - Last Filed: 07/23/23 19:19> Narrative Exam Narrative: GENERAL: 83 year old patient appears stated age. Well-developed patient, in no distress. Shivering. NEURO: AOx3. HEAD: Atraumatic. Normocephalic. EYES: Pupils equal round and reactive. Extraocular motions intact. No scleral icterus. No injection or drainage. ENT: Nose without bleeding or purulent drainage. Airway patent. NECK: Trachea midline. Non tender. No neck stiffness. CARDIOVASCULAR: Regular rate and rhythm without murmurs, gallops, or rubs. RESPIRATORY: Clear to auscultation. Breath sounds equal bilaterally. No wheezes, rales, or rhonchi. GASTROINTESTINAL: Abdomen soft, non-tender, nondistended. EXTREMITIES: No edema or joint tenderness. SKIN: No rash or erythema of visible areas Initial Vital Signs Initial Vital Signs: Vital Signs Temperature 99.2 F 07/23/23 15:29 Pulse Rate 89 07/23/23 15:29 Respiratory Rate 16 07/23/23 15:29 Blood Pressure 88/50 L 07/23/23 15:29 Pulse Oximetry 97 07/23/23 15:29 Oxygen Delivery Method Room Air 07/23/23 15:29 <Marilyn Boykin DO - Last Filed: 07/24/23 04:30> Initial Vital Signs Initial Vital Signs: Vital Signs Temperature 99.2 F 07/23/23 15:29 Pulse Rate 89 07/23/23 15:29 Respiratory Rate 16 07/23/23 15:29 Blood Pressure 88/50 L 07/23/23 15:29 Pulse Oximetry 97 07/23/23 15:29 Oxygen Delivery Method Room Air 07/23/23 15:29 Course <Johana Carreno PA-C - Last Filed: 07/23/23 19:19> Orders Ordered: Discontinued Medications Acetaminophen (Acetaminophen 325 Mg Tablet) 650 mg PO Q4H PRN PRN Reason: Fever/Mild Pain (1-3) Last Admin: 07/23/23 16:12 Dose: 650 mg Documented By: Sodium Chloride (Normal Saline 0.9%) 500 mls @ 500 mls/hr IV BOLUS ONE Stop: 07/23/23 17:05 Last Infusion: 07/23/23 17:08 Dose: 0 mls/hr Documented By: Admin: 07/23/23 16:12 Dose: 1,000 mls/hr Documented By: Sodium Chloride (Normal Saline 0.9%) 500 mls @ 500 mls/hr IV BOLUS ONE Stop: 07/23/23 19:36 Last Infusion: 07/23/23 20:10 Dose: 0 mls/hr Documented By: Admin: 07/23/23 18:45 Dose: 500 mls/hr Documented By: ST Vital Signs Vital signs: Vital Signs - 8 hr 07/23/23 20:36 07/23/23 20:36 Pulse Rate 99 H Blood Pressure 131/60 Pulse Oximetry 97 <Marilyn Boykin DO - Last Filed: 07/24/23 04:30> Orders Ordered: Discontinued Medications Acetaminophen (Acetaminophen 325 Mg Tablet) 650 mg PO Q4H PRN PRN Reason: Fever/Mild Pain (1-3) Last Admin: 07/23/23 16:12 Dose: 650 mg Documented By: ST Sodium Chloride (Normal Saline 0.9%) 500 mls @ 500 mls/hr IV BOLUS ONE Stop: 07/23/23 17:05 Last Infusion: 07/23/23 17:08 Dose: 0 mls/hr Documented By: Admin: 07/23/23 16:12 Dose: 1,000 mls/hr Documented By: ST Sodium Chloride (Normal Saline 0.9%) 500 mls @ 500 mls/hr IV BOLUS ONE Stop: 07/23/23 19:36 Last Infusion: 07/23/23 20:10 Dose: 0 mls/hr Documented By: Admin: 07/23/23 18:45 Dose: 500 mls/hr Documented By: ST Vital Signs Vital signs: Vital Signs - 8 hr 07/23/23 20:36 07/23/23 20:36 Pulse Rate 99 H Blood Pressure 131/60 Pulse Oximetry 97 MDM - Chest Pain <Johana Carreno PA-C - Last Filed: 07/23/23 19:19> Lab Data 07/23/23 16:03 07/23/23 16:03 Labs: Lab Results 07/23/23 07/23/23 07/23/23 Range/Units 16:00 16:03 16:03 WBC 7.7 (4.5-11.0) X10^3/uL RBC 4.01 L (4.5-5.9) X10^6/uL Hgb 13.5 (13.5-17.5) g/dL Hct 39.6 L (41-53) % MCV 98.8 (80-100) fL MCH 33.7 (26-34) PG MCHC 34.1 (30-36) % RDW 13.2 (11.6-14.8) % Plt Count 150 (150-400) X10^3/uL Neut % (Auto) 79.8 H (50-75) % Lymph % (Auto) 10.4 L (25-40) % [facility] % (Auto) 9.1 (3-14) % Eos % (Auto) 0.4 L (2-4) % Baso % (Auto) 0.3 (0-2) % Neut # (Auto) 6100 (8625-1977) /uL Lymph # (Auto) 800 L (5204-7664) /uL [facility] # (Auto) 700 (0-900) /uL Eos # (Auto) 0 (0-450) /uL Baso # (Auto) 0 (0-100) /uL PT 12.5 (10.1-12.7) SECONDS INR 1.1 (0.9-1.3) APTT 27 (26-36) SECONDS Sodium (137-145) mmol/L Potassium (3.4-5.1) mmol/L Chloride (98-107) mmol/L Carbon Dioxide (22-32) mmol/L BUN (9-20) mg/dL Creatinine (0.66-1.25) mg/dL Estimated GFR (>60) mL/min BUN/Creatinine Ratio (6-22) Glucose (80-110) mg/dL Calcium (8.4-10.2) mg/dL Magnesium (1.6-2.3) mg/dL Total Bilirubin (0.2-1.3) mg/dL AST (17-59) IU/L ALT (<50) IU/L Alkaline Phosphatase (38-126) U/L Total Creatine Kinase (55-170) U/L Troponin I (0.01-0.034) ng/mL Total Protein (6.3-8.2) g/dL Albumin (3.5-5.0) g/dL Globulin (1.7-4.1) g/dL Albumin/Globulin Ratio (1.0-2.8) Lipase (23-300) U/L SARS-CoV-2 (PCR) Positive H (Negative) Influenza A (RT-PCR) Flu a negative (NEGATIVE) Influenza B (RT-PCR) Flu b negative (NEGATIVE) RSV (PCR) Negative (Negative) 07/23/23 07/23/23 Range/Units 16:03 18:09 WBC (4.5-11.0) X10^3/uL RBC (4.5-5.9) X10^6/uL Hgb (13.5-17.5) g/dL Hct (41-53) % MCV (80-100) fL MCH (26-34) PG MCHC (30-36) % RDW (11.6-14.8) % Plt Count (150-400) X10^3/uL Neut % (Auto) (50-75) % Lymph % (Auto) (25-40) % [facility] % (Auto) (3-14) % Eos % (Auto) (2-4) % Baso % (Auto) (0-2) % Neut # (Auto) (8146-1859) /uL Lymph # (Auto) (0317-7134) /uL [facility] # (Auto) (0-900) /uL Eos # (Auto) (0-450) /uL Baso # (Auto) (0-100) /uL PT (10.1-12.7) SECONDS INR (0.9-1.3) APTT (26-36) SECONDS Sodium 134 L (137-145) mmol/L Potassium 3.9 (3.4-5.1) mmol/L Chloride 100 (98-107) mmol/L Carbon Dioxide 27 (22-32) mmol/L BUN 21 H (9-20) mg/dL Creatinine 1.20 (0.66-1.25) mg/dL Estimated GFR > 60 (>60) mL/min BUN/Creatinine Ratio 17.5 (6-22) Glucose 105 (80-110) mg/dL Calcium 9.5 (8.4-10.2) mg/dL Magnesium 1.7 (1.6-2.3) mg/dL Total Bilirubin 0.7 (0.2-1.3) mg/dL AST 30 (17-59) IU/L ALT 25 (<50) IU/L Alkaline Phosphatase 36 L (38-126) U/L Total Creatine Kinase 40 L (55-170) U/L Troponin I 0.045 H 0.044 H (0.01-0.034) ng/mL Total Protein 7.1 (6.3-8.2) g/dL Albumin 4.0 (3.5-5.0) g/dL Globulin 3.1 (1.7-4.1) g/dL Albumin/Globulin Ratio 1.3 (1.0-2.8) Lipase 122 (23-300) U/L SARS-CoV-2 (PCR) (Negative) Influenza A (RT-PCR) (NEGATIVE) Influenza B (RT-PCR) (NEGATIVE) RSV (PCR) (Negative) Imaging Data Chest x-ray: Radiologist's Impression: PROCEDURE:? XR CHEST 1V ? INDICATIONS:? chest pain ? TECHNIQUE:? One view of the chest was acquired.? ? COMPARISON:? [facility], CT, CT CHEST ABD PEL W CON, 09/27/2022, 10:18. ? FINDINGS:? ? Surgical changes and devices:? None.? ? Lungs and pleura:? Lungs are clear.? No pleural effusions or pneumothorax.? ? Mediastinum:? Mediastinal contours appear normal.? Heart size is normal.? ? Bones and chest wall:? No suspicious bony lesions.? Age-appropriate bony degenerative changes are seen.? Overlying soft tissues appear unremarkable.? ? ? IMPRESSION:? Portable chest within normal limits for age. ? ? Dictated by: William Leblanc M.D. on 07/23/2023 at 16:16 ? ? Approved by: William Leblanc M.D. on 07/23/2023 at 16:17? ECG Data Interpretation: Sinus rhythm rate 99 with a right bundle branch block and prolonged QT Repeat EKG is no prior available shows rate of 86 with incomplete right bundle branch block normal QT MDM Narrative Medical decision making narrative: Multiple etiologies for patient's symptoms considered including, but not limited to: Sepsis, COVID infection, bacterial infection. High pretest suspicion for COVID infection. We will check labs including blood and urine cultures, gave normal saline and obtain chest x-ray. COVID positive on PCR test. Blood without clinically significant abnormality aside from elevated troponin which is stable on repeat. Chest x-ray within normal limits. Patient with borderline soft blood pressure, received 1 L normal saline throughout his stay. End of shift sign-out to Dr. Boykin to continue care. <Marilyn Boykin, DO - Last Filed: 07/24/23 04:30> Lab Data Labs: Lab Results 07/23/23 07/23/23 07/23/23 Range/Units 16:00 16:03 16:03 WBC 7.7 (4.5-11.0) X10^3/uL RBC 4.01 L (4.5-5.9) X10^6/uL Hgb 13.5 (13.5-17.5) g/dL Hct 39.6 L (41-53) % MCV 98.8 (80-100) fL MCH 33.7 (26-34) PG MCHC 34.1 (30-36) % RDW 13.2 (11.6-14.8) % Plt Count 150 (150-400) X10^3/uL Neut % (Auto) 79.8 H (50-75) % Lymph % (Auto) 10.4 L (25-40) % [facility] % (Auto) 9.1 (3-14) % Eos % (Auto) 0.4 L (2-4) % Baso % (Auto) 0.3 (0-2) % Neut # (Auto) 6100 (6908-2775) /uL Lymph # (Auto) 800 L (1478-7771) /uL [facility] # (Auto) 700 (0-900) /uL Eos # (Auto) 0 (0-450) /uL Baso # (Auto) 0 (0-100) /uL PT 12.5 (10.1-12.7) SECONDS INR 1.1 (0.9-1.3) APTT 27 (26-36) SECONDS Sodium (137-145) mmol/L Potassium (3.4-5.1) mmol/L Chloride (98-107) mmol/L Carbon Dioxide (22-32) mmol/L BUN (9-20) mg/dL Creatinine (0.66-1.25) mg/dL Estimated GFR (>60) mL/min BUN/Creatinine Ratio (6-22) Glucose (80-110) mg/dL Calcium (8.4-10.2) mg/dL Magnesium (1.6-2.3) mg/dL Total Bilirubin (0.2-1.3) mg/dL AST (17-59) IU/L ALT (<50) IU/L Alkaline Phosphatase (38-126) U/L Total Creatine Kinase (55-170) U/L Troponin I (0.01-0.034) ng/mL Total Protein (6.3-8.2) g/dL Albumin (3.5-5.0) g/dL Globulin (1.7-4.1) g/dL Albumin/Globulin Ratio (1.0-2.8) Lipase (23-300) U/L SARS-CoV-2 (PCR) Positive H (Negative) Influenza A (RT-PCR) Flu a negative (NEGATIVE) Influenza B (RT-PCR) Flu b negative (NEGATIVE) RSV (PCR) Negative (Negative) 07/23/23 07/23/23 Range/Units 16:03 18:09 WBC (4.5-11.0) X10^3/uL RBC (4.5-5.9) X10^6/uL Hgb (13.5-17.5) g/dL Hct (41-53) % MCV (80-100) fL MCH (26-34) PG MCHC (30-36) % RDW (11.6-14.8) % Plt Count (150-400) X10^3/uL Neut % (Auto) (50-75) % Lymph % (Auto) (25-40) % [facility] % (Auto) (3-14) % Eos % (Auto) (2-4) % Baso % (Auto) (0-2) % Neut # (Auto) (8026-1925) /uL Lymph # (Auto) (0058-0812) /uL [facility] # (Auto) (0-900) /uL Eos # (Auto) (0-450) /uL Baso # (Auto) (0-100) /uL PT (10.1-12.7) SECONDS INR (0.9-1.3) APTT (26-36) SECONDS Sodium 134 L (137-145) mmol/L Potassium 3.9 (3.4-5.1) mmol/L Chloride 100 (98-107) mmol/L Carbon Dioxide 27 (22-32) mmol/L BUN 21 H (9-20) mg/dL Creatinine 1.20 (0.66-1.25) mg/dL Estimated GFR > 60 (>60) mL/min BUN/Creatinine Ratio 17.5 (6-22) Glucose 105 (80-110) mg/dL Calcium 9.5 (8.4-10.2) mg/dL Magnesium 1.7 (1.6-2.3) mg/dL Total Bilirubin 0.7 (0.2-1.3) mg/dL AST 30 (17-59) IU/L ALT 25 (<50) IU/L Alkaline Phosphatase 36 L (38-126) U/L Total Creatine Kinase 40 L (55-170) U/L Troponin I 0.045 H 0.044 H (0.01-0.034) ng/mL Total Protein 7.1 (6.3-8.2) g/dL Albumin 4.0 (3.5-5.0) g/dL Globulin 3.1 (1.7-4.1) g/dL Albumin/Globulin Ratio 1.3 (1.0-2.8) Lipase 122 (23-300) U/L SARS-CoV-2 (PCR) (Negative) Influenza A (RT-PCR) (NEGATIVE) Influenza B (RT-PCR) (NEGATIVE) RSV (PCR) (Negative) ECG Data Interpretation: Sinus rhythm rate 99 with a right bundle branch block and prolonged QT Repeat EKG is no prior available shows rate of 86 with incomplete right bundle branch block normal QT Lucretia: EKG 1. Low voltage sinus rhythm right bundle-branch block rate 99 [place] interval 216 QRS 104 QTC 472 Q-waves in lead [address] or Ischemic changes EKG 2. Sinus rhythm rate 86 persistent right bundle-branch block no ischemic changes MDM Narrative Medical decision making narrative: Multiple etiologies for patient's symptoms considered including, but not limited to: Sepsis, COVID infection, bacterial infection. High pretest suspicion for COVID infection. We will check labs including blood and urine cultures, gave normal saline and obtain chest x-ray. COVID positive on PCR test. Blood without clinically significant abnormality aside from elevated troponin which is stable on repeat. Chest x-ray within normal limits. Patient with borderline soft blood pressure, received 1 L normal saline throughout his stay. End of shift sign-out to Dr. Boykin to continue care. Dr. Boykin patient signed out to me by APC of seen evaluated patient myself. Patient started having COVID symptoms last night positive COVID. Not requiring oxygen appears comfortable. Troponins indeterminate without EKG changes. He is not having any chest pain able to eat and drink feeling better some IV fluids. Discussion with patient and in regards to supportive care at home. All questions have been addressed. Discharge Plan Departure Patient Disposition: Home Clinical Impression: COVID-19 Instructions: COVID-19 Activity Restrictions/Additional Instructions: *You have been diagnosed with COVID-19 *What to do: Stay hydrated with Gatorade Pedialyte Jell-O *Continue to take medications as directed Tylenol 650 mg every 4-6 hours if needed for [id number] Motrin 600 mg every 6 hours if needed for [id number] pain *Follow up with your primary care provider in 2-3 days or call [phone] *Return to ER if you should have inability to tolerate fluids fever not controlled oxygen level 90% or less or any new, worsening or concerning symptoms Prescriptions: No Action hydrocodone-acetaminophen 5-325 mg tablet 1 tab PO Q6H PRN (Reason: pain) Qty: 20 0RF Referrals: Garrison Abbott MD [Primary Care Provider] - Stand Alone Forms: Patient Portal/API <Marilyn Boykin DO - Last Filed: 07/24/23 04:30> Cosign ED Attending Taniature Attestation: I was immediately available in the department for consultation. Documentation has been reviewed.
[2023-07-23 16:30] LABS: Add Manual Diff / Slide Review NO; Basophils Absolute Auto 0 /uL (0-100); Basophils Percent Auto 0.3 % (0-2); Eosinophils Absolute Auto 0 /uL (0-450); Eosinophils Percent Auto 0.4 % (2-4); Hematocrit 39.6 % (41-53); Hemoglobin 13.5 g/dL (13.5-17.5); Lymphocytes Absolute Auto 800 /uL (1100-4500); Lymphocytes Percent Auto 10.4 % (25-40); Mean Corpuscular HGB Conc 34.1 % (30-36); Mean Corpuscular Hemoglobin 33.7 PG (26-34); Mean Corpuscular Volume 98.8 fL (80-100); Monocytes Absolute Auto 700 /uL (0-900); Monocytes Percent Auto 9.1 % (3-14); Neutrophils Absolute Auto 6100 /uL (1500-7000); Neutrophils Percent Auto 79.8 % (50-75); Platelet Count 150 X10^3/uL (150-400); Red Blood Cell Count 4.01 X10^6/uL (4.5-5.9); Red Cell Distribution Width 13.2 % (11.6-14.8); White Blood Cell Count 7.7 X10^3/uL (4.5-11.0)
[2023-07-23 16:49] LABS: INR 1.1 (0.9-1.3); Prothrombin Time 12.5 SECONDS (10.1-12.7)
[2023-07-23 16:51] LABS: PTT Partial Thromboplastin Tim 27 SECONDS (26-36)
[2023-07-23 17:00] LABS: Alanine Aminotransferase 25 IU/L (<50); Albumin Globulin Ratio 1.3 (1.0-2.8); Alkaline Phosphatase 36 U/L (38-126); Aspartate Aminotransferase 30 IU/L (17-59); BUN Creatinine Ratio 17.5 (6-22); Bilirubin Total 0.7 mg/dL (0.2-1.3); Blood Urea Nitrogen 21 mg/dL (9-20); Calcium 9.5 mg/dL (8.4-10.2); Carbon Dioxide 27 mmol/L (22-32); Chloride 100 mmol/L (98-107); Creatine Kinase 40 U/L (55-170); Estimated Glomerular Filt Rate > 60 mL/min (>60); Globulin 3.1 g/dL (1.7-4.1); Glucose 105 mg/dL (80-110); HEMOLYSIS < 15 (0-50); Lipase 122 U/L (23-300); Magnesium 1.7 mg/dL (1.6-2.3); Potassium 3.9 mmol/L (3.4-5.1); Sodium 134 mmol/L (137-145); Total Protein 7.1 g/dL (6.3-8.2)
[2023-07-23 17:10] LABS: Troponin I 0.045 ng/mL (0.01-0.034)
[2023-07-23 17:54] LABS: Influenza A - CEPHEID Flu A NEGATIVE (NEGATIVE); Influenza B - CEPHEID Flu B NEGATIVE (NEGATIVE); Respiratory Syncytial Virus Negative (Negative)
[2023-07-23 17:59] LABS: COVID-19 CEPHEID 4-PLEX PCR POSITIVE (Negative)
[2023-07-23 18:36] LABS: Troponin I 0.044 ng/mL (0.01-0.034)
[2023-07-23] MEDS: SODIUM CHLORIDE 0.9% 500 ML IV (18:45)
--- NOTE | 2023-07-23 20:42 | PC.NURSE ---
Pt able to ambulate throughout hallway without difficulty at his baseline with steady gait. Spo2 remained above 95%, max HR 105. Denied shortness of breath or feeling lightheaded while ambulating.
== END 2023-07-23 20:52 | disposition home or self-care (01) ==
PROVIDERS: Emergency Medicine; Physician Assistant; Emergency Provider Emergency Medicine; Family Provider Family Medicine; PCP Family Medicine
DX: U07.1 COVID-19 (principal); I45.10 Unspecified right bundle-branch block
CPT/HCPCS: 0241U; 36415; 71045; 80053; 82550; 83690; 83735; 84484; 85025; 85610; 85730; 93005; 99284

== ENCOUNTER → 2023-08-20 13:24 | Outpatient (CLI) | payer MEDICARE, OTHER, SELFPAY | PROVIDERS: Family Provider Family Medicine; PCP Family Medicine; Referring Provider Family Medicine; Visit Provider Family Medicine | DX: Z23 Encounter for immunization (principal) | CPT/HCPCS: 90471; 90662 ==

== ENCOUNTER → 2023-09-17 13:31 | Outpatient (CLI) | payer MEDICARE, OTHER, SELFPAY ==
[2023-09-17 13:59] LABS: Estimated Glomerular Filt Rate > 60 mL/min (>60)
== END ==
PROVIDERS: Family Provider Family Medicine; PCP Family Medicine; Referring Provider Radiology Diagnostic Radiology; Visit Provider Radiology Diagnostic Radiology
DX: C61 Malignant neoplasm of prostate (principal)
CPT/HCPCS: 36415; 82565

== ENCOUNTER → 2023-10-01 08:34 | Outpatient (CLI) | payer MEDICARE, OTHER, SELFPAY ==
--- NOTE | 2023-10-01 08:36 | DI.NM.S_ITS ---
PROCEDURE: [place] BONE SCAN WHOLE BODY RADIOPHARMACEUTICAL: 19.6 mCi Tc-99m MDP IV. INDICATIONS: PROSTATE CANCER TECHNIQUE: Delayed whole-body scintigrams were obtained approximately 3-4 hours after intravenous injection of radiotracer. Anterior and posterior views were acquired from vertex to feet. COMPARISON: [place], [place], [place] BONE SCAN WHOLE BODY, 12/24/2021, 10:26. FINDINGS: Multiple regions of increased radiotracer uptake are seen within the axial and proximal appendicular skeleton, which appear grossly unchanged. IMPRESSION: No significant change in diffuse bony metastatic disease. Dictated by: Christopher Junior M.D. on 10/01/2023 at 15:25 Approved by: Christopher Junior M.D. on 10/01/2023 at 15:27
--- NOTE | 2023-10-01 08:36 | DI.CT.S_ITS ---
PROCEDURE: CT ABDOMEN PELVIS W CON INDICATIONS: PROSTATE CANCER TECHNIQUE: After the administration of oral and intravenous contrast, axial sections were acquired from the lung bases to the pubic symphysis. Coronal and sagittal reformats were performed. For radiation dose reduction, the following was used: automated exposure control, adjustment of mA and/or kV according to patient size. COMPARISON:[facility], CT, CT ABDOMEN PELVIS W CON, 03/05/2022, 10:17. FINDINGS: Image quality: Excellent. Lung bases: Unremarkable. Heart: No significant findings. ABDOMEN: Liver: No solid mass. Gallbladder: No radiopaque gallstones or wall thickening. Biliary ducts: No biliary dilation. Pancreas: No ductal dilation. Spleen: Size is within normal limits. Adrenal Glands: No adrenal nodules. Kidneys and Ureters: Nonobstructive 3 millimeter calculus in the left inferior pole. No hydronephrosis. No solid mass. Stable left exophytic simple cyst. No complex renal cystic lesion which requires follow up. Stomach and Bowel: Normal colonic caliber, without significant wall thickening. Colonic diverticula. Peritoneum: No abnormal intraperitoneal fluid. No free air. Stable small lipoma within the left lateral abdominal wall. Ventral Wall: No hernia. Abdominal Nodes: No retroperitoneal or mesenteric adenopathy by size criteria. Vessels: Aorta and inferior vena cava are normal in size. PELVIS: Pelvic Organs: Unremarkable. Bladder: Unremarkable. Pelvic Nodes: No enlarged lymph nodes. Miscellaneous: Small fat containing right inguinal hernia. Bones: No significant change in diffuse sclerotic bony metastases throughout the appendicular and axial skeleton. IMPRESSION: Compared to prior CT 03/05/2022, no significant change in extensive sclerotic bony metastases throughout the appendicular and axial skeleton. No evidence of new soft tissue metastases or adenopathy. Approved by: Marietta Reynaga M.D. on 10/01/2023 at 10:38
== END ==
PROVIDERS: Family Provider Family Medicine; PCP Family Medicine; Referring Provider Urology; Visit Provider Urology
DX: C61 Malignant neoplasm of prostate (principal); C79.51 Secondary malignant neoplasm of bone
CPT/HCPCS: 74177; 78306; A9503; Q9967

== ENCOUNTER 2024-01-31 17:59 | Emergency (ER) | payer MEDICARE, OTHER, SELFPAY ==
[2024-01-31] VITALS (10 sets, daily range): BP systolic 128–159; BP diastolic 60–67; PULSE 79–90; RESP 12–26; TEMP 36.7; O2SAT 95–100; BMI 27.8
[2024-01-31] MEDS: ONDANSETRON 4 MG/2 ML INJ IV (18:35)
--- NOTE | 2024-01-31 18:50 | DI.RAD.S_ITS ---
PROCEDURE: XR CHEST 1V INDICATIONS: chest pain TECHNIQUE: One view of the chest was acquired. COMPARISON: [facility], [place], XR CHEST 1V, 07/23/2023, 16:27. FINDINGS: Surgical changes and devices: None. Lungs and pleura: Lungs are clear. No pleural effusions or pneumothorax. Mediastinum: Mediastinal contours appear normal. Heart size is normal. Bones and chest wall: No suspicious bony lesions. Overlying soft tissues appear unremarkable. IMPRESSION: No acute cardiopulmonary abnormality is seen. Dictated by: Mohan Valero M.D. on 01/31/2024 at 19:06 Approved by: Mohan Valero M.D. on 01/31/2024 at 19:06
[2024-01-31] MEDS: ASPIRIN 81 MG CHEW TAB 324 MG PO (18:54)
[2024-01-31 19:00] LABS: INR 1.1 (0.9-1.3); Prothrombin Time 12.1 SECONDS (9.4-12.5)
[2024-01-31 19:03] LABS: PTT Partial Thromboplastin Tim 29 SECONDS (25.1-36.5)
[2024-01-31 19:04] LABS: Alanine Aminotransferase 27 IU/L (<50); Albumin 3.9 g/dL (3.5-5.0); Albumin Globulin Ratio 1.3 (1.0-2.8); Alkaline Phosphatase 40 U/L (38-126); Aspartate Aminotransferase 33 IU/L (17-59); BUN Creatinine Ratio 42.1 (6-22); Bilirubin Total 0.7 mg/dL (0.2-1.3); Blood Urea Nitrogen 24 mg/dL (9-20); Calcium 8.9 mg/dL (8.4-10.2); Carbon Dioxide 23 mmol/L (22-32); Chloride 107 mmol/L (98-107); Creatine Kinase 36 U/L (55-170); Estimated Glomerular Filt Rate > 60 mL/min (>60); Globulin 3.1 g/dL (1.7-4.1); Glucose 109 mg/dL (80-110); HEMOLYSIS 46 (0-50); Lipase 103 U/L (23-300); Magnesium 1.8 mg/dL (1.6-2.3); Potassium 4.4 mmol/L (3.4-5.1); Sodium 136 mmol/L (137-145)
[2024-01-31 19:09] LABS: Add Manual Diff / Slide Review NO; Basophils Absolute Auto 0 /uL (0-100); Basophils Percent Auto 0.2 % (0-2); Eosinophils Absolute Auto 0 /uL (0-450); Eosinophils Percent Auto 0.3 % (2-4); Hematocrit 41.7 % (41-53); Hemoglobin 13.9 g/dL (13.5-17.5); Lymphocytes Absolute Auto 400 /uL (1100-4500); Lymphocytes Percent Auto 4.1 % (25-40); Mean Corpuscular HGB Conc 33.4 % (30-36); Mean Corpuscular Hemoglobin 32.9 PG (26-34); Mean Corpuscular Volume 98.7 fL (80-100); Monocytes Absolute Auto 400 /uL (0-900); Monocytes Percent Auto 4.8 % (3-14); Neutrophils Absolute Auto 7700 /uL (1500-7000); Neutrophils Percent Auto 90.6 % (50-75); Platelet Count 164 X10^3/uL (150-400); Red Blood Cell Count 4.23 X10^6/uL (4.5-5.9); Red Cell Distribution Width 13.7 % (11.6-14.8); White Blood Cell Count 8.5 X10^3/uL (4.5-11.0)
[2024-01-31 19:15] LABS: Troponin I < 0.012 ng/mL (0.01-0.034)
--- NOTE | 2024-01-31 19:50 | ED_ITS ---
HPI - Nausea/Vomiting/Diarrhea General Chief complaint: Nausea/Vomiting/Diarrhea Stated complaint: dizziness, lightheadedness, vomiting Time Seen by Provider: 01/31/24 19:50 Source: patient and family Mode of arrival: Wheelchair Limitations: no limitations History of Present Illness HPI Narrative: 83-year-old male with known prostate cancer on hyper Yajaira, prednisone 10 mg daily, hypertension and dyslipidemia who states that 11:00 a.m. this morning he was feeling fine before then went to answer the door felt lightheaded dizzy got a little bit of sweaty and was hot and cold, he felt better after lying down. He states a couple hours later he threw up twice with some yellow emesis. He has not had any more emesis since then. Denies any chest pain or pressure, no shortness of breath, he did not feel like he was going to pass out at any point. He has had no cold cough or congestive symptoms. States he has had regular bowel movements no black or bloody stools. No diarrhea. He denies any dysuria urgency or frequency. No swelling in extremities no rash or skin changes. No sick contacts. Patient and note that they have been doing a lot of work on their home moving a lot of things they are currently very disrupted at home and stressed. Patient has been on his medication for prostate cancer for 3 years along with prednisone without any changes doses, lisinopril and pravastatin. Former smoker, occasional alcohol, no recreational drugs. Patient is accompanied by his . Dr. Abbott is his primary care physician. Related Data Previous Rx's Medication Instructions Recorded hydrocodone 5 mg-acetaminophen 325 1 tab PO Q6H PRN pain #20 tabs 09/27/ mg tablet Allergies Allergy/AdvReac Type Severity Reaction Status Date / Time codeine Allergy Verified 07/23/23 15:28 Review of Systems Review of Systems ROS Unobtainable: All systems reviewed & are unremarkable except as noted in HPI and below Patient History Social History Smoking Status: Former smoker Smoking Status: Former smoker alcohol intake frequency: 0-2 drinks per day Alcohol type: wine Substance Use Type: does not use Exam Narrative Exam Narrative: GENERAL: Alert and oriented x three, well-appearing elderly male in mild distress. HEENT: Head normocephalic, atraumatic, EOMI, pupils reactive, face symmetric, moist mucous membranes NECK: Supple, full range of motion CARDIOVASCULAR: Regular rate and rhythm without murmurs, rubs or gallops. No JVD. No edema bilateral lower extremities. RESPIRATORY: Breath sounds equal bilaterally, no wheezes rales or rhonchi. No tachypnea, no accessory motion. Speaks in full sentences. ABDOMEN: Soft, nontender. Nondistended. Normoactive bowel sounds all 4 quadrants. No guarding or rebound, rigidity, no mass : No CVA tenderness EXTREMITIES: Normal range of motion, no clubbing or edema. Neurovascularly intact NEUROLOGICAL: Cranial nerves II through XII grossly intact. Moving all extremities SKIN: Warm, dry, no petechiae, no rashes or lesions. Initial Vital Signs Initial Vital Signs: Vital Signs Temperature 98.1 F 01/31/24 18:02 Pulse Rate 90 01/31/24 18:02 Respiratory Rate 16 01/31/24 18:02 Blood Pressure 145/65 H 01/31/24 18:02 Pulse Oximetry 99 01/31/24 18:02 Oxygen Delivery Method Room Air 01/31/24 18:02 Course Orders Ordered: ED Orders 01/31/24 18:35 Complete Blood Count AUTO DIFF Stat Comprehensive Metabolic Panel Stat Lipase Stat Magnesium Stat PTT Partial Thromboplastin Alfredo Stat Prothrombin Time INR Stat Troponin & CK Cardiac Panel Stat 01/31/24 18:50 XR chest 1V Stat EKG-12 Lead Stat 01/31/24 18:56 Covid-19 + FLU A/B + RSV - PCR Stat 01/31/24 19:23 Urine Microscopic Stat Discontinued Medications Aspirin (Aspirin 81 Mg Chew Tab) 324 mg PO NOW ONE Stop: 01/31/24 18:51 Last Admin: 01/31/24 18:54 Dose: 324 mg Documented By: CHIARA Sodium Chloride (Normal Saline 0.9%) 1,000 mls @ 1,000 mls/hr IV BOLUS ONE Stop: 01/31/24 21:02 Last Infusion: 01/31/24 21:29 Dose: Infused Documented By: Admin: 01/31/24 20:20 Dose: 1,000 mls/hr Documented By: CHIARA Ondansetron HCl (Ondansetron 4 Mg Odt) 4 mg SL NOW PRN PRN Reason: Nausea And Vomiting Ondansetron HCl (Ondansetron 4 Mg/2 Ml Inj) 4 mg IV NOW PRN PRN Reason: Nausea And Vomiting Last Admin: 01/31/24 18:35 Dose: 4 mg Documented By: CHIARA Ondansetron HCl (Ondansetron 4 Mg Odt Prepack) 1 bottle MISC DIRECTED ONE Stop: 01/31/24 21:06 Last Admin: 01/31/24 21:12 Dose: 1 bottle Documented By: AB Vital Signs Vital signs: Vital Signs - 8 hr 01/31/24 18:02 01/31/24 18:26 01/31/24 18:26 Temperature 98.1 F Pulse Rate 90 85 Respiratory Rate 16 Blood Pressure 145/65 H 135/63 Pulse Oximetry 99 100 Oxygen Delivery Method Room Air 01/31/24 18:30 01/31/24 19:00 01/31/24 19:30 Temperature Pulse Rate 82 81 79 Respiratory Rate 12 Blood Pressure Pulse Oximetry 98 99 99 Oxygen Delivery Method 01/31/24 19:35 01/31/24 19:35 01/31/24 20:00 Temperature Pulse Rate 83 82 Respiratory Rate 16 18 Blood Pressure 150/67 H Pulse Oximetry 98 97 Oxygen Delivery Method 01/31/24 20:00 01/31/24 20:30 01/31/24 20:30 Temperature Pulse Rate 81 Respiratory Rate Blood Pressure 159/66 H 144/64 H Pulse Oximetry 95 Oxygen Delivery Method Room Air 01/31/24 21:00 01/31/24 21:00 01/31/24 21:30 Temperature Pulse Rate 83 Respiratory Rate 26 H Blood Pressure 128/61 129/60 Pulse Oximetry 96 Oxygen Delivery Method Room Air 01/31/24 21:30 Temperature Pulse Rate 79 Respiratory Rate 18 Blood Pressure Pulse Oximetry 96 Oxygen Delivery Method Room Air MDM - Nausea/Vomiting/Diarrhea Lab Data 01/31/24 18:35 01/31/24 18:35 Labs: Lab Results 01/31/24 01/31/24 01/31/24 Range/Units 18:35 18:56 19:23 WBC 8.5 (4.5-11.0) X10^3/uL RBC 4.23 L (4.5-5.9) X10^6/uL Hgb 13.9 (13.5-17.5) g/dL Hct 41.7 (41-53) % MCV 98.7 (80-100) fL MCH 32.9 (26-34) PG MCHC 33.4 (30-36) % RDW 13.7 (11.6-14.8) % Plt Count 164 (150-400) X10^3/uL Neut % (Auto) 90.6 H (50-75) % Lymph % (Auto) 4.1 L (25-40) % [place]oll[place] % (Auto) 4.8 (3-14) % Eos % (Auto) 0.3 L (2-4) % Baso % (Auto) 0.2 (0-2) % Neut # (Auto) 7700 H (5068-6392) /uL Lymph # (Auto) 400 L (5651-2244) /uL [place] # (Auto) 400 (0-900) /uL Eos # (Auto) 0 (0-450) /uL Baso # (Auto) 0 (0-100) /uL PT 12.1 (9.4-12.5) SECONDS INR 1.1 (0.9-1.3) APTT 29 (25.1-36.5) SECONDS Sodium 136 L (137-145) mmol/L Potassium 4.4 (3.4-5.1) mmol/L Chloride 107 (98-107) mmol/L Carbon Dioxide 23 (22-32) mmol/L BUN 24 H (9-20) mg/dL Creatinine 0.57 L (0.66-1.25) mg/dL Estimated GFR > 60 (>60) mL/min BUN/Creatinine Ratio 42.1 H (6-22) Glucose 109 (80-110) mg/dL Calcium 8.9 (8.4-10.2) mg/dL Magnesium 1.8 (1.6-2.3) mg/dL Total Bilirubin 0.7 (0.2-1.3) mg/dL AST 33 (17-59) IU/L ALT 27 (<50) IU/L Alkaline Phosphatase 40 (38-126) U/L Total Creatine Kinase 36 L (55-170) U/L Troponin I < 0.012 (0.01-0.034) ng/mL Total Protein 7.0 (6.3-8.2) g/dL Albumin 3.9 (3.5-5.0) g/dL Globulin 3.1 (1.7-4.1) g/dL Albumin/Globulin Ratio 1.3 (1.0-2.8) Lipase 103 (23-300) U/L Urine RBC None seen (0-5/HPF) Urine WBC 0-1/hpf (0-5/HPF) Ur Squamous Epith Cells None seen (0-5/HPF) Urine Bacteria Occasional (0-1) (None) Urine Mucus 1+ H (Negative) Ur Culture Indicated? Cult not indicated Vol Urine Centrifuged 10ml (spun) SARS-CoV-2 (PCR) Negative (Negative) Influenza A (RT-PCR) Flu a negative (NEGATIVE) Influenza B (RT-PCR) Flu b negative (NEGATIVE) RSV (PCR) Negative (Negative) Urine Dip Bedside Urine Glucose Negative Bedside Urine Bilirubin - Negative Bedside Urine Ketone - Negative Urine Specific [place] 1.020 Bedside Urine Occult Blood - Negative Bedside Urine pH 6.0 Bedside Urine Protein +/- 15 Bedside Urine Urobilinogen - Negative Bedside Urine Nitrite - Negative Bedside Urine Leukocytes - Negative Esterase Imaging Data Chest x-ray: Radiologist's Impression: Close Chest X-Ray (Signed) Mohan Valero - 01/31/24 Bone Scan Nuclear Medicine (Signed) Christopher Junior - 10/01/23 Abdomen/Pelvis CT (Signed) Marietta Reynaga - 10/01/23 Chest X-Ray (Signed) William Leblanc - 07/23/23 Chest/Abdomen/Pelvis CT (Signed) William Leblanc - 09/27/22 Abdomen/Pelvis CT (Signed) Lluvia Rutherford - 03/05/22 Bone Scan Nuclear Medicine (Signed) Huong Pedersen - 12/24/21 Abdomen/Pelvis CT (Signed) Huong Pedersen - 12/24/21 Chest/Abdomen/Pelvis CT (Signed) Benito Garcia - 02/27/21 Bone Scan Nuclear Medicine (Signed) Kolton Clayton - 02/27/21 Echocardiogram Ultrasound (Signed) Pauline Redd - 02/07/19 Launch?[address] [address] XRay Report Signed Patient: Abhay Parker MR#: [id number] : 1940 Acct:[id number] Age/Sex: 83 / M Date of Service: 01/31/24 Loc: ED Accession Number: [id number] Procedure: XR chest 1V Ordering Provider: Dianne Thao D.O. PROCEDURE: XR CHEST 1V INDICATIONS: chest pain TECHNIQUE: One view of the chest was acquired. COMPARISON: [facility], , XR CHEST 1V, 07/23/2023, 16:27. FINDINGS: Surgical changes and devices: None. Lungs and pleura: Lungs are clear. No pleural effusions or pneumothorax. Mediastinum: Mediastinal contours appear normal. Heart size is normal. Bones and chest wall: No suspicious bony lesions. Overlying soft tissues appear unremarkable. IMPRESSION: No acute cardiopulmonary abnormality is seen. Dictated by: Mohan Valero M.D. on 01/31/2024 at 19:06 Approved by: Mohan Valero M.D. on 01/31/2024 at 19:06 ECG Data Attestation: I personally reviewed and interpreted this ECG as follows: Prior ECG tracings: available for review Interpretation: Sinus rhythm, incomplete right bundle-branch rate 83 [place] 190 QRS of 104 QTC of 451. Patient has prior from 07/23/2023 which appears similar as today. MDM Narrative Medical decision making narrative: 83-year-old male comes in with complaint of feeling lightheaded dizzy and sweaty this morning at around 11, then had 2 episodes of vomiting this afternoon. He has not had any persistent symptoms he feels improved but came for evaluation. Patient is mildly hypertensive but otherwise appropriate vitals. Labs show white count 8.5 hemoglobin of 13 platelets of 164, INR 1.1, glucose of 109 with a creatinine of 0.57 BUN 24 sodium of 136 potassium of 4 4 with a chloride of 107 and a CO2 of 23, LFTs are negative, troponin is negative. Chest x-ray is negative Point of care urine shows no acute change. EKG shows sinus rhythm with incomplete right bundle appears similar to July of 2023. Patient's COVID/RSV/influenza swab is negative. Patient received fluids, 4 mg of Zofran patient continues to feel improved has not had any additional emesis today. Reviewed all of his findings from today discussed possible CT abdomen but his exam is overall benign and patient states symptoms have totally resolved. He feels comfortable deferring as he feels much better. Discussed return precautions. Discharge Plan Departure Patient Disposition: Home Clinical Impression: Nausea and vomiting Activity Restrictions/Additional Instructions: I hope you continue to feel improved. You can take Zofran 1 tablet every 6 hours as needed for nausea or vomiting. Please return if you have fevers, persistent vomiting, new abdominal back or flank pain, lightheadedness or passing out, new chest pain or shortness of breath, black or bloody stools or other new or concerning changes. Prescriptions: No Action hydrocodone-acetaminophen 5-325 mg tablet 1 tab PO Q6H PRN (Reason: pain) Qty: 20 0RF Referrals: Garrison Abbott MD [Primary Care Provider] - Stand Alone Forms: Patient Portal/API
[2024-01-31 20:03] LABS: Influenza A - CEPHEID Flu A NEGATIVE (NEGATIVE); Influenza B - CEPHEID Flu B NEGATIVE (NEGATIVE); Respiratory Syncytial Virus Negative (Negative)
[2024-01-31 20:11] LABS: COVID-19 CEPHEID 4-PLEX PCR Negative (Negative)
[2024-01-31 20:15] LABS: Bacteria Urine Occasional (0-1); RBC Urine None Seen (0-5/HPF); Urine Volume 10mL (spun); WBC Urine 0-1/HPF (0-5/HPF)
[2024-01-31 20:16] LABS: Culture Indicated Urine Cult Not Indicated; Mucus Urine 1+ (Negative); Squamous Epithelial Cell Urine None Seen (0-5/HPF)
[2024-01-31] MEDS: SODIUM CHLORIDE 0.9% 1,000 ML 1000 ML IV (20:20)
[2024-01-31] MEDS: ONDANSETRON 4 MG ODT PREPACK 1 BOTTLE MISC (21:12)
== END 2024-01-31 21:42 | disposition home or self-care (01) ==
PROVIDERS: Emergency Provider Emergency Medicine; Family Provider Family Medicine; PCP Family Medicine
DX: R11.2 Nausea with vomiting, unspecified (principal); R07.9 Chest pain, unspecified; Z20.822 Contact with and (suspected) exposure to COVID-19
CPT/HCPCS: 0241U; 36415; 71045; 80053; 81003; 81015; 82550; 83690; 83735; 84484; 85025; 85610; 85730; 93005; 93010; 96361; 96374; 99284; J2405

== ENCOUNTER → 2024-04-19 11:39 | Outpatient (CLI) | payer MEDICARE, OTHER, SELFPAY ==
--- NOTE | 2024-04-19 | DI.RAD.S_ITS ---
PROCEDURE: XR CHEST 2V INDICATIONS: chronic cough TECHNIQUE: 2 views of the chest were acquired. COMPARISON: [facility], CT, CT CHEST ABD PEL W CON, 09/27/2022, 10:18. [facility], [place], [place] BONE SCAN WHOLE BODY, 10/01/2023, 12:43. [facility], CR, XR CHEST 1V, 01/31/2024, 18:51. FINDINGS: Surgical changes and devices: None. Lungs and pleura: Lungs are clear. No pleural effusions or pneumothorax. Mediastinum: Mediastinal contours are normal. Heart size is normal. Bones and chest wall: Diffuse increased bone density consistent with diffuse osseous metastasis, better seen on CT and bone scan. Soft tissues appear unremarkable. IMPRESSION: 1. No acute cardiopulmonary abnormality is seen. 2. Diffuse osseous metastatic disease. Dictated by: Kellie Clayton M.D. on 04/19/2024 at 13:29 Approved by: Kellie Clayton M.D. on 04/19/2024 at 13:32
== END ==
LOC: RAD 11:41
PROVIDERS: Family Provider Family Medicine; PCP Family Medicine; Referring Provider Family Medicine; Visit Provider Family Medicine
DX: C79.51 Secondary malignant neoplasm of bone (principal); C80.1 Malignant (primary) neoplasm, unspecified; R05.3 Chronic cough
CPT/HCPCS: 71046

== ENCOUNTER → 2024-09-09 14:37 | Outpatient (CLI) | payer MEDICARE, OTHER, SELFPAY ==
[2024-09-09 15:07] LABS: Estimated Glomerular Filt Rate > 60 mL/min (>60)
== END ==
PROVIDERS: Family Provider Family Medicine; PCP Family Medicine; Referring Provider Radiology Diagnostic Radiology; Visit Provider Radiology Diagnostic Radiology
DX: C61 Malignant neoplasm of prostate (principal)
CPT/HCPCS: 36415; 82565

== ENCOUNTER → 2024-10-03 08:30 | Outpatient (CLI) | payer MEDICARE, OTHER, SELFPAY ==
--- NOTE | 2024-10-03 08:31 | DI.NM.S_ITS ---
PROCEDURE: [place] BONE SCAN WHOLE BODY RADIOPHARMACEUTICAL: 22 mCi Tc-99m MDP IV. INDICATIONS: PROSTATE CANCER METASTATIC TO BONE TECHNIQUE: Delayed whole-body scintigrams were obtained approximately 3-4 hours after intravenous injection of radiotracer. Anterior and posterior views were acquired from vertex to feet. COMPARISON: [place], [place], [place] BONE SCAN WHOLE BODY, 10/01/2023, 12:43. FINDINGS: Similar extent of osseous metastatic disease of the calvarium, spine, pelvis and ribs. IMPRESSION: Similar osseous metastatic disease. Dictated by: Abhay Roberts M.D. on 10/03/2024 at 16:16 Approved by: Abhay Roberts M.D. on 10/03/2024 at 16:17
--- NOTE | 2024-10-03 08:31 | DI.CT.S_ITS ---
PROCEDURE: CT ABDOMEN PELVIS W CON INDICATIONS: PROSTATE CANCER METASTATIC TO BONE TECHNIQUE: After the administration of intravenous contrast, axial sections acquired from the lung bases to the pubic symphysis. Coronal and sagittal reformats were performed. For radiation dose reduction, the following was used: automated exposure control, adjustment of mA and/or kV according to patient size. COMPARISON: [facility], [place], [place] BONE SCAN WHOLE BODY, 10/01/2023, 12:43. [facility], CT, CT ABDOMEN PELVIS W CON, 10/01/2023, 9:41. FINDINGS: Image quality: Diagnostic. Lower Chest: No significant findings. ABDOMEN: Liver: No solid mass. Gallbladder: No radiopaque gallstones or wall thickening. Biliary ducts: No biliary dilation. Pancreas: No ductal dilation. Spleen: Size is within normal limits. Adrenal Glands: No adrenal nodules. Kidneys and Ureters: No hydronephrosis. Small nonobstructing stone in the inferior left kidney measuring 0.3 cm. No solid mass. No complex renal cystic lesion which requires follow up. Left kidney simple cyst measuring 4.5 cm. Stomach and Bowel: Normal colonic caliber, without significant wall thickening. Diverticulosis. The appendix is not dilated. The appendix is herniated into the right inguinal hernia, (4/51). Peritoneum: No abnormal intraperitoneal fluid. No free air. Ventral Wall: No significant ventral hernia. Abdominal Nodes: No retroperitoneal or mesenteric adenopathy by size criteria. Vessels: Aorta and inferior vena cava are normal in size. Circumferential calcified atherosclerotic plaque. PELVIS: Pelvic Organs: Prostate appears atrophic. Prostate calcifications. Bladder: No bladder wall thickening, accounting for underdistention. Pelvic Nodes: No enlarged lymph nodes. Miscellaneous: No inguinal hernias are seen. Bones: Extensive sclerotic osseous metastatic disease. No interval change appreciated. IMPRESSION: 1. Extensive sclerotic osseous metastatic disease. Not significantly changed. 2. No solid mass or adenopathy. 3. Right inguinal hernia containing a nondilated appendix. No free fluid. 4. Small nonobstructing left kidney stone. Dictated by: Tyler Franz M.D. on 10/03/2024 at 10:52 Approved by: Tyler Franz M.D. on 10/03/2024 at 11:05
== END ==
PROVIDERS: Family Provider Family Medicine; PCP Family Medicine; Referring Provider Urology; Visit Provider Urology
DX: C61 Malignant neoplasm of prostate (principal); C79.51 Secondary malignant neoplasm of bone; K40.90 Unilateral inguinal hernia, without obstruction or gangrene, not specified as recurrent; N20.0 Calculus of kidney
CPT/HCPCS: 74177; 78306; A9503; Q9967

== ENCOUNTER → 2025-04-13 11:32 | Outpatient (CLI) | payer MEDICARE, OTHER, SELFPAY ==
--- NOTE | 2025-04-13 11:33 | DI.RAD.S_ITS ---
PROCEDURE: XR CHEST 2V INDICATIONS: COUGH, R/O PNEUMONIA TECHNIQUE: 2 views of the chest were acquired. COMPARISON: [facility], CR, XR CHEST 2V, 04/19/2024, 10:45. FINDINGS: Surgical changes and devices: None. Lungs and pleura: Lungs are clear. No pleural effusions or pneumothorax. Mediastinum: Mediastinal contours are normal. Heart size is normal. Bones and chest wall: No suspicious bony abnormalities. Soft tissues appear unremarkable. IMPRESSION: No acute cardiopulmonary pathology. Dictated by: Rad Sanchez M.D. on 04/13/2025 at 12:15 Approved by: Rad Sanchez M.D. on 04/13/2025 at 12:15
== END ==
PROVIDERS: Family Provider Family Medicine; PCP Family Medicine; Referring Provider Family Medicine; Visit Provider Family Medicine
DX: J18.0 Bronchopneumonia, unspecified organism (principal)
CPT/HCPCS: 71046

== ENCOUNTER → 2025-10-03 13:34 | Outpatient (CLI) | payer MEDICARE, OTHER, SELFPAY ==
--- NOTE | 2025-10-03 13:35 | DI.ECHO.S_ITS ---
[facility]+ [facility] : : [id number] : [address] : : [id number] : : Phone: [phone] Echocardiogram Report + + :Name: ARMANDO CASAS Study Date: 10/03/2025 Height: 68 in : :[facility] ReadingLocation: Weight: 180 lb : : Gender: Male BSA: 2.0 m2 : :: 1940 Age: 85 yrs BP: 159/68 mmHg: :Reason For Study: Aortic valve stenosis : :Ordering Physician: CHRISTO, : :NICK Performed By: Rozina Reeves : :Referring: NICK VILLAFUERTE : + + Interpretation Summary 1) Normal left ventricular thickness, size, wall motion, and systolic function (EF 60-65%). 2) Normal right ventricular size and function. 3) There is mild to moderate aortic stenosis (valve area 1.3cm2, mean gradient 25mmHg, severity ratio 0.31). 4) Compared to the echo done 02/07/2019, aortic stenosis has worsened from mild to mild-moderate on this study. Procedure: A two-dimensional transthoracic echocardiogram with color flow and Doppler was performed. The study quality was technically adequate. Comparison is made with the echocardiogram of 02-07-19. The heart rate ranged between 76-79 bpm during the study. Left Ventricle: The left ventricle is normal in size and wall thickness. The ejection fraction is estimated to be 60-65%. Left ventricular systolic function appears normal without focal wall motion abnormalities. Normal diastolic function. Right Ventricle: The right ventricle grossly appears normal in size with probable normal systolic function. Atria: The left atrial size is normal. Right atrial size is normal. The interatrial septum grossly appears intact with no obvious evidence for an atrial septal defect. Mitral Valve: The mitral valve is normal in structure and function. There is no mitral regurgitation noted. Aortic Valve: The aortic valve is trileaflet. The aortic valve is severely calcified. The aortic valve area is 1.6 centimeters squared by planimetry. The calculated aortic valve area is 1.3 cm2. The peak aortic velocity is 3.5 m/sec. The aortic valve mean gradient is 23 mmHg. The peak aortic velocity on the previous exam was 2.2 m/sec. There is mild to moderate aortic stenosis. No aortic regurgitation is present. Tricuspid Valve: The tricuspid valve leaflets are thin and pliable. No tricuspid regurgitation. Pulmonary artery pressures cannot be estimated because of the lack of a measurable TR jet velocity. Pulmonic Valve: The pulmonic valve is not well seen, but is grossly normal. There is no pulmonic valvular regurgitation. Great Vessels: The aortic root is normal size. The ascending aorta is normal in size. The aortic arch is normal in size. The IVC is of normal diameter and collapses greater than 50% with a sniff. This suggests a low right atrial pressure of 3 mm Hg. Pericardium/ Pleura There is no pericardial effusion. There is no pleural effusion. MMode/2D Measurements & Calculations LVIDd: 4.2 cm LVOT diam: 2.3 cm LVIDs: 1.8 cm Ao root diam: 3.4 cm FS: 56.1 % asc Aorta Diam: 3.0 cm EPSS: 0.12 cm Ao Arch Diam (Prox Trans): 2.8 cm IVSd: 0.85 cm LVPWd: 1.0 cm LV tipton. diameter/BSA (cm/m^2): 2.1 LV sys. diameter/BSA (cm/m^2): 0.94 LA A2 area: 18.8 cm2 RA long axis: 5.9 cm LA A4 area: 25.2 cm2 RA area: 17.3 cm2 LA length (vol): 6.6 cm RA vol: 42.9 ml LA vol: 61.2 ml RA : 22.0 ml/m2 LA vol index: 31.3 ml/m2 RVD1 (basal): 3.0 cm TAPSE: 1.7 cm Doppler Measurements & Calculations Ao V2 max: 354.6 cm/sec LVOT Max Ramy: 102.0 cm/sec Ao V2 mean: 218.9 cm/sec LV V1 max P.3 mmHg Ao max P.3 mmHg LV V1 VTI: 26.3 cm Ao mean P.0 mmHg JOSH(I,D): 1.3 cm2 Ao V2 VTI: 84.2 cm JOSH(V,D): 1.2 cm2 sev ratio: 0.31 JOSH indexed to BSA (cm^2/m^2): 0.64 MV E max ramy: 85.9 cm/sec PA V2 max: 107.8 cm/sec MV A max ramy: 92.1 cm/sec PA V2 mean: 72.3 cm/sec MV E/A: 0.93 PA mean P.3 mmHg Lat Peak E' Ramy: 6.9 cm/sec PA pr(Accel): 18.6 mmHg E/E' lat: 12.5 MV dec time: 0.19 sec SV(LVOT): 105.8 ml Reading Physician:04:18 PM
== END ==
LOC: ECHO 13:35
PROVIDERS: Family Provider Family Medicine; PCP Family Medicine; Referring Provider Family Medicine; Visit Provider Family Medicine
DX: I35.0 Nonrheumatic aortic (valve) stenosis (principal)
CPT/HCPCS: 93306